=== PATIENT | female | born 1955 | race Caucasian/White ===

== ENCOUNTER 2016-11-04 09:30 | Outpatient (RCR) | payer SELFPAY ==
--- OUTSIDE RECORDS SUMMARY | 2016-10-07 08:52 | XMS REPORT | Continuity of Care Document ---
Author Author [facility] Organization [facility] Address Unknown Phone Unavailable Care Team Providers Care Clinical Reimbursement Specialist Name Role Phone HANK YOUNG MD PCP Insurance Providers Payer Name Policy Number Subscriber Name Relationship [facility] [id number] Dean Hyatt 18 Self / Same As Patient Advance Directives Directive Response Recorded Date/Time Advance Directives No 04/07/15 3:15pm Health Care Power of Development Geologist No 04/07/15 3:15pm Organ Donor No 04/07/15 3:15pm Resuscitation Status Full Code 04/07/15 3:15pm Chief Complaint and Reason for Visit Chief Complaint 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 HTN Reason for Visit Uncontrolled hypertension Problems Medical Problems Problem Onset Date Status Uncontrolled hypertension Unknown Active Medications Medication Dose Route Sig Days/Qty Instructions Order Date Discontinued Date Status Hum Insulin Nph/Reg Insulin Hm 80 Units SQ EVERY MORNING 04/24/13 Active Metformin HCl (Glucophage) 1,000 Each PO TWICE A DAY WITH MEALS 04/24 Active HCTZ/Lisinopril (Zestoretic) 1 Tab PO DAILY 04/24/13 Active Tramadol HCl 100 Mg PO THREE TIMES A DAY PRN PAIN TAKE 2 (50 MG) TABLETS 04/24/13 Active Cyclobenzaprine HCl 10 Mg PO THREE TIMES A DAY PRN MUSCLE SPASMS Active Acetaminophen/Hydrocodone Bitart 1 - 2 Ea PO Q4HR PRN 04/26/1304/07 Discontinued Insulin Human Regular SC 04/07/15 Active Hum Insulin Nph/Reg Insulin Hm 60 Units SQ EVERY EVENING 04/07/15 Active Trazodone Hcl 50 Mg PO BEDTIME 04/07/15 Active Clopidogrel Bisulfate 1 Each PO DAILY 30 Days 04/13/15 Active Aspirin 81 Mg PO DAILY 04/13/15 Active Social History Social History Problem Response Recorded Date/Time Alcohol Use Denies Use 04/07/2015 3:15pm Recreational Drug Use No 04/07/2015 3:15pm Recent Foreign Travel No 04/07/2015 3:15pm Recent Infectious Disease Exposure No 04/07/2015 3:15pm Hospitalization with Isolation Denies 04/13/2015 4:55pm Smoking Status Former Smoker 04/07/2015 3:15pm Do you dip or chew tobacco? No 04/07/2015 3:15pm Query Response Start Date Stop Date Smoking Status Former Smoker 04/07/1999 Hospital Discharge Instructions No hospital discharge instructions. Plan of Care Discharge Date 04/13/15 2:30pm Disposition 30 STILL A PATIENT Instructions/Education Provided Ischemic Stroke (DC) Forms Provided PDI Medical Prescriptions See Medications Section Referrals XOCHITL GUDINO MD (Unspecified) 04/20/15 Address: [address] [place] [phone] Reason(s) for Referral: 10:00am HANK YOUNG MD (Unspecified) 04/21/15 Address: [address] [place] [address], [facility] [address] [place] [phone] Reason(s) for Referral: 9:15am Functional Status Query Response Date Recorded Patient Orientation Person Place Time Situation April 13, 2015 10:39am Comprehension Ability Understands Concepts April 13, 2015 12:00pm Allergies, Adverse Reactions, Alerts Allergen Type Severity Reaction Status Last Updated No Known Drug Allergies Active 04/24/13 Immunizations Name Given Type Date of Pneumonia Vaccine 07/30/11 Historical Vital Signs Acute Vital Signs Vital Response Date/Time Temperature (Fahrenheit) 96.9 degrees F (97.6 - 99.5) Temperature (Calculated Celsius) 36.78518 degrees C (36.4 - 37.5) Temperature Source Tympanic Pulse Rate (adult) 74 bpm (60 - 90) Respiratory Rate 21 bpm (12 - 24) O2 Sat by Pulse Oximetry 98 % (88 - 100) Blood Pressure 152/90 mm Hg Pain Pain Intensity 0 Height (Feet) 5 feet Height (Inches) 3.00 inches Height (Calculated Centimeters) 160.124661 cm Weight (Pounds) 254 pounds Weight (Ounces) 8.0 oz Weight (Calculated Grams) 108044.463 gm Weight (Calculated Kilograms) 115.197128 kilograms Calculated BMI 46.05 Results Laboratory Results Test Name Result Units Flags Reference Collection Date/Time Result Date/ Time Comments White Blood Count 7.5 10^3/uL 4.3-11.0 04/13/2015 4:52am 04/13/2015 5: 31am Red Blood Count 3.63 10^6/uL L 4.35-5.85 04/13/2015 4:52am 04/13/2015 5: 31am Hemoglobin 10.4 G/DL L 11.5-16.0 04/13/2015 4:5204/13/2015 5:31am Hematocrit 33 % L 35-52 04/13/2015 4:52am 04/13/2015 5:31am Mean Corpuscular Volume 90 FL 80-99 04/13/2015 4:5204/13/2015 5: 31am Mean Corpuscular Hemoglobin 29 PG 25-34 04/13/2015 4:52am 04/13/2015 5: 31am Mean Corpuscular Hemoglobin Concent 32 G/DL 32-36 04/13/2015 4:52am 5:31am Red Cell Distribution Width 14.9 % H 10.0-14.5 04/13/2015 4:52am 2014 5:31am Platelet Count 220 10^3/uL 130-400 04/13/2015 4:5204/13/2015 5:31am Mean Platelet Volume 10.4 FL 7.4-10.4 04/13/2015 4:5204/13/2015 5: 31am Neutrophils (%) (Auto) 53 % 42-75 04/08/2015 5:0504/08/2015 5:37am Lymphocytes (%) (Auto) 38 % 12-44 04/08/2015 5:0504/08/2015 5:37am Monocytes (%) (Auto) 7 % 0-12 04/08/2015 5:0504/08/2015 5:37am Eosinophils (%) (Auto) 2 % 0-10 04/08/2015 5:05am 04/08/2015 5:37am Basophils (%) (Auto) 0 % 0-10 04/08/2015 5:05am 04/08/2015 5:37am Neutrophils # (Auto) 4.2 X 10^3 1.8-7.8 04/08/2015 5:05am 04/08/2015 5: 37am Lymphocytes # (Auto) 3.0 X 10^3 1.0-4.0 04/08/2015 5:05am 04/08/2015 5: 37am Monocytes # (Auto) 0.6 X 10^3 0.0-1.0 04/08/2015 5:05am 04/08/2015 5: 37am Eosinophils # (Auto) 0.2 10^3/uL 0.0-0.3 04/08/2015 5:05am 04/08/2015 5 :37am Basophils # (Auto) 0.0 10^3/uL 0.0-0.1 04/08/2015 5:05am 04/08/2015 5: 37am Prothrombin Time 12.7 SEC 12.2-14.7 04/10/2015 1:33am 04/10/2015 1: 57am INR Comment 1.0 0.8-1.4 04/10/2015 1:33am 04/10/2015 1:57am INTERPRETIVE DATA SUGGESTED THERAPEUTIC RANGE FOR INR'S: VENOUS THROMBOSIS, PULMONARY EMBOLISM, OR PREVENTION OF SYSTEMIC EMBOLISM (EG. IN ATRIAL FIBRILLATION): 2.0 - 3.0 MECHANICAL PROSTHETIC HEART VALVES: 2.5 - 3.5* *NOTE: INR'S UP TO 4.5 MAY BE NECESSARY IN SELECTED GROUPS OF HIGH RISK PATIENTS. [employer] CONSENSUS CONFERENCE ON ANTITHROMBOTIC THERAPY (2000). Activated Partial Thromboplast Time 76 SEC H 24-35 04/13/2015 5:59am 6:21am Urine Color YELLOW 04/07/2015 12:55pm 04/07/2015 1:20pm Urine Clarity CLEAR 04/07/2015 12:55pm 04/07/2015 1:20pm Urine pH 5 5-9 04/07/2015 12:55pm 04/07/2015 1:20pm Urine Specific [place] 1.020 1.016-1.022 04/07/2015 12:55pm 2014 1:20pm Urine Protein NEGATIVE NEGATIVE 04/07/2015 12:55pm 04/07/2015 1:20pm Urine Glucose (UA) NEGATIVE NEGATIVE 04/07/2015 12:55pm 04/07/2015 1: 20pm Urine RBC (Auto) NEGATIVE NEGATIVE 04/07/2015 12:55pm 04/07/2015 1: 20pm Urine Ketones NEGATIVE NEGATIVE 04/07/2015 12:55pm 04/07/2015 1:20pm Urine Nitrite NEGATIVE NEGATIVE 04/07/2015 12:55pm 04/07/2015 1:20pm Urine Bilirubin NEGATIVE NEGATIVE 04/07/2015 12:55pm 04/07/2015 1: 20pm Urine Urobilinogen NORMAL MG/DL NORMAL 04/07/2015 12:55pm 04/07/2015 1: 20pm Urine Leukocyte Esterase NEGATIVE NEGATIVE 04/07/2015 12:55pm 2014 1:20pm Urine RBC NONE /HPF 04/07/2015 12:55pm 04/07/2015 1:20pm Urine WBC NONE /HPF 04/07/2015 12:55pm 04/07/2015 1:20pm Urine Bacteria TRACE /HPF 04/07/2015 12:55pm 04/07/2015 1:20pm Urine Squamous Epithelial Cells 10-25 /HPF * 04/07/2015 12:55pm 2014 1:20pm Urine Crystals NONE /LPF 04/07/2015 12:55pm 04/07/2015 1:20pm Urine Casts NONE /LPF 04/07/2015 12:55pm 04/07/2015 1:20pm Urine Mucus NEGATIVE /LPF 04/07/2015 12:55pm 04/07/2015 1:20pm Urine Culture Indicated NO 04/07/2015 12:55pm 04/07/2015 1:20pm Sodium Level 137 MMOL/L 135-145 04/08/2015 5:05am 04/08/2015 5:51am Potassium Level 3.8 MMOL/L 3.6-5.0 04/08/2015 5:05am 04/08/2015 5:51am Chloride Level 106 MMOL/L 98-107 04/08/2015 5:05am 04/08/2015 5:51am Carbon Dioxide Level 19 MMOL/L L 21-32 04/08/2015 5:0504/08/2015 5: 51am Blood Urea Nitrogen 9 MG/DL 7-18 04/08/2015 5:04/08/2015 5:51am Creatinine 0.77 MG/DL 0.60-1.30 04/08/2015 5:0504/08/2015 5:51am BUN/Creatinine Ratio 12 04/08/2015 5:0504/08/2015 5:51am Estimat Glomerular Filtration Rate > 60 04/08/2015 5:2014 5:51am GFR INTERPRETIVE DATA UNITS FOR ESTIMATED GFR (eGFR): mL/min/1.73 M2 REFERENCE RANGE FOR ESTIMATED GFR (eGFR) eGFR NORMAL eGFR >60 MODERATELY DECREASED eGFR 30-59 SEVERLY DECREASED eGFR 15-29 KIDNEY FAILURE <15 (OR DIALYSIS) Glucose Level 119 MG/DL H 70-105 04/08/2015 5:04/08/2015 5:51am Glucometer 181 MG/DL H 70-110 04/13/2015 10:54am 04/13/2015 11:27am Calcium Level 8.8 MG/DL 8.5-10.1 04/08/2015 5:0504/08/2015 5:51am Magnesium Level 1.2 MG/DL L 1.8-2.4 04/08/2015 5:04/08/2015 5:51am Total Bilirubin 0.5 MG/DL 0.1-1.0 04/08/2015 5:04/08/2015 5:51am Alkaline Phosphatase 43 U/L 40-136 04/08/2015 5:04/08/2015 5:51am Aspartate Amino Transf (AST/SGOT) 40 U/L H 5-34 04/08/2015 5:2014 5:51am Alanine Aminotransferase (ALT/SGPT) 36 U/L 0-55 04/08/2015 5:04/08 5:51am Troponin I < 0.30 NG/ML <0.30 04/07/2015 12:25pm 04/07/2015 1:03pm Troponin I < 0.30 NG/ML <0.30 04/07/2015 8:30pm 04/07/2015 9:11pm Myoglobin 43.7 NG/ML 10.0-92.0 04/07/2015 12:25pm 04/07/2015 1:03pm Total Protein 6.9 G/DL 6.4-8.2 04/08/2015 5:05am 04/08/2015 5:51am Albumin 3.8 G/DL 3.2-4.5 04/08/2015 5:05am 04/08/2015 5:51am Triglycerides Level 170 MG/DL H <150 04/08/2015 5:05am 04/08/2015 12: 29pm Cholesterol Level 136 MG/DL < 200 04/08/2015 5:05am 04/08/2015 12:29pm HDL Cholesterol 32 MG/DL L 40-60 04/08/2015 5:05am 04/08/2015 12:29pm LDL Cholesterol Direct 84 MG/DL 1-129 04/08/2015 5:05am 04/08/2015 12: 29pm VLDL Cholesterol 34 MG/DL 5-40 04/08/2015 5:05am 04/08/2015 12:29pm Stool Occult Blood Immunoassay POSITIVE * NEGATIVE 04/12/2015 9:34am 12:11pm Procedures Procedure Status Date Provider(s) Tracing only of electrocardiogram completed 04/07/15 JUAN R MONTOYA DO Color Doppler echocardiography completed 04/07/15 HANK YOUNG MD Transesophageal echocardiography with contrast completed 04/09/15 HINA GUADALUPE DO Transesophageal echocardiography with contrast completed 04/09/15 HINA GUADALUPE DO Encounters Encounter Location Date/Time Discharged Inpatient [facility] 04/07/15 2:29pm Recent Diagnosis Uncontrolled hypertension
[~2016-11-04 09:30] MED LIST: ACET325T49 PO; APIX5TAB PO; ASP81CT PO; ATOR80TA76 PO; CLOP75TA PO; CLOP75TA69 PO; CYCL-97 PO; HUM100VI13 SQ; HUM100VI4 SQ; HYDR-3583 PO; INSA10V1 SC; LISI1TAB6 PO; LISI1TAB8 PO; METF-380 PO; TRAZ-144 PO; TRM50T PO
== END 2017-01-05 | disposition home or self-care (01) ==
LOC: CARD 09:30
PROVIDERS: ATTEND Internal Medicine Interventional Cardiology
DX: I48.91 Unspecified atrial fibrillation (principal)
CPT/HCPCS: 93270

== ENCOUNTER → 2019-11-29 | Outpatient (CLI) | payer MEDICARE ==
[~2019-11-29] MED LIST changes: +LISI1TAB25 PO; -LISI1TAB8 PO
--- NOTE | 2019-11-29 15:59 | Diagnostic Imaging Report ---
INDICATION: Routine screening. No prior mammograms are available for comparison. 2-D and 3-D bilateral screening mammography was performed. The current study was also evaluated with a Computer Aided Detection (CAD) system. 3-D tomosynthesis was also performed and reviewed. FINDINGS: Scattered fibroglandular densities are identified bilaterally. There are coarse benign calcifications throughout both breasts. A large calcified mass is seen in the medial aspect of the right breast. This could represent calcifications within a degenerative fibroadenoma. No spiculated mass or malignant-appearing microcalcifications are seen. Axillae are unremarkable. IMPRESSION: No mammographic features suspicious for malignancy are identified. ACR BI-RADS Category 2: Benign findings. Result letter will be mailed to the patient. Note: At least 10% of breast cancer is not imaged by mammography. Dictated by: Dictated on workstation # [id number]
== END ==
LOC: RAD 08:55
PROVIDERS: ATTEND Nurse Practitioner Community Health
DX: Z12.31 Encounter for screening mammogram for malignant neoplasm of breast (principal)
CPT/HCPCS: 77067

== ENCOUNTER 2021-12-27 20:31 | Observation (INO) | payer MEDICARE ==
[~2021-12-27] VITALS: Ht 160 cm; Wt 91.0 kg
[~2021-12-27 20:31] MED LIST changes: -LISI1TAB25 PO; +LISI1TAB46 PO
[2021-12-27] MEDS ORDERED: ASPIRIN 81 MG CHEW (CHILDREN'S ASA) PO ONE (20:45)
[2021-12-27 21:04] LABS: BASOPHILS % (AUTO) 0 % (0-10); EOSINOPHILS # (AUTO) 0.1 10^3/uL (0.0-0.3); EOSINOPHILS % (AUTO) 2 % (0-10); HEMATOCRIT 37 % (35-52); HEMOGLOBIN 11.8 g/dL (11.5-16.0); LYMPHOCYTES # (AUTO) 2.3 10^3/uL (1.0-4.0); LYMPHOCYTES % (AUTO) 41 % (12-44); MEAN CORPUSCULAR HEMOGLOBIN 30 pg (25-34); MEAN CORPUSCULAR HGB CONC 32 g/dL (32-36); MEAN CORPUSCULAR VOLUME 95 fL (80-99); MEAN PLATELET VOLUME 11.1 fL (9.0-12.2); MONOCYTES # (AUTO) 0.6 10^3/uL (0.0-1.0); MONOCYTES % (AUTO) 10 % (0-12); NEUTROPHILS # (AUTO) 2.5 10^3/uL (1.8-7.8); NEUTROPHILS % (AUTO) 46 % (42-75); PLATELET COUNT 284 10^3/uL (130-400); WHITE BLOOD COUNT 5.6 10^3/uL (4.3-11.0)
--- NOTE | 2021-12-27 21:05 | Diagnostic Imaging Report ---
CHEST 1 VIEW, AP/PA ONLY Indication: Chest pain. Comparison: 10/04/2016 Findings: No focal airspace disease in the visualized lungs. Please note that the posterior lower lobes are poorly evaluated by portable radiography. No pleural effusion or pneumothorax. Normal cardiomediastinal silhouette. Impression: 1. No acute cardiopulmonary process by portable radiography. Dictated by: Dictated on workstation # [id number]
--- NOTE | 2021-12-27 21:12 | ED Cardiac General ---
History of Present Illness General Chief Complaint: Cardiac/General Problems Source: patient Exam Limitations: no limitations History of Present Illness Date Seen by Provider: Dec 27, 2021 Time Seen by Provider: 21:08 Initial Comments To ER by EMS from [facility] with reports of an irregular pulse noticed this evening. She had some bradycardia with a palpable pulse in the 40s. Blood pressure is fine the patient voices no specific complaints though she states that she just generally does not feel quite right. She has been at the shelter for 2 weeks since being discharged from the [facility]. She denies chest pain. Family reports that she is not been eating or drinking since she has been at the shelter because she does not like their food and she refuses to drink the shakes. She has been without her insulin until today. 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 Hyperlipidemia Irregular heart beat Memory loss Morgan morgan disease Obesity Primary hypertension Type 2 diabetes mellitus with stage 3 chronic kidney disease, with long-term current use of insulin ([facility]) Brief Hospital Course Dean Hyatt is a 66 year old female, 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 Patient initially presented to [facility] after being found unresponsive by family. Last known well was 11/28/2021 at approximately 0800. Patient had witnessed seizure upon EMS arrival to scene and 3 additional witnessed seizures at OSH ER and subsequently intubated for airway protection. CT head w/o performed at OSH reported to be negative for acute intracranial abnormalities. Transferred to NEICU at [facility] for further evaluation and management of seizures, stabilized, transferred to Stroke service and then to General Neurology. MRI Brain showed new R FRUIT CULLER infarct. 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 Seizures were quickly controlled. 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 Patient was continued on Aspirin and started on Ticagrelor (failed Clopidogrel in the past) as dual-antiplatelet therapy for 3 months, placed on 80 Atorvastatin and ezetimibe, and started on Keppra after weaning off Lacosamide, but eventually Lacosamide was weaned off and she has been seizure free on Keppra monotherapy 1500 BID. She was a historical smoker, but not active. Cardiology was consulted due to runs of PVCs and started Metoprolol for rate control and recommended further outpatient workup. Her magnesium was low which was a cardiac rhythm risk so she was started on oral magnesium supplementation. Her diabetes was optimized by Endocrine inpatient and she was normalized on Glargine, Aspart, and Metformin. She developed a mild SU due to poor PO intake but did not tolerate keeping an IV in place so this was managed with strong encouragement of PO intake. Her blood pressures were kept within goal on Lisinopril, she received regular PT and OT, and was assessed by Rehab who recommended subacute rehabili tation. She was discharged with Holter monitor orders for 30 days. Timing/Duration: constant Severity: mild, moderate Activities at Onset: none Prior CP/Workup: no prior chest pain NTG SL MANAGER BANK: No ASA po MANAGER BANK: No Allergies and Home Medications Allergies Coded Allergies: No Known Drug Allergies (Unverified , 04/24/13) Patient Home Medication List Home Medication List Reviewed: Yes Acetaminophen (Acetaminophen) 325 Mg Tablet, 650 MG PO Q6H PRN for PAIN, (Reported) Entered as Reported by: JUAN FRANCISCO GONZALEZ on 10/02/16 1713 Apixaban (Eliquis) 5 Mg Tablet, 5 MG PO BID Prescribed by: DANIEL KRISHNA on 10/04/16 1249 Atorvastatin Calcium (Atorvastatin Calcium) 80 Mg Tablet, 80 MG PO DAILY, (Reported) Entered as Reported by: JUAN FRANCISCO GONZALEZ on 10/02/16 1714 Cyclobenzaprine Hcl (Flexeril) 10 Mg Tablet, 10 MG PO HS PRN for MUSCLE SPASMS, (Reported) Entered as Reported by: ANDREAS CHINCHILLA on 04/24/13 1003 Hum Insulin Nph/Reg Insulin Hm (Relion Novolin 70-30 Vial) 10 Ml Vial, 20-30 UNITS SQ BID, (Reported) Entered as Reported by: ANDREAS CHINCHILLA on 04/24/13 1003 Insulin Human Regular (Novolin R (Sliding Scale-A)) 10 Unit/0.1 Ml Soln, SC UD, (Reported) Entered as Reported by: YUNIOR BENITEZ on 04/07/15 1508 Lisinopril/Hydrochlorothiazide (Lisinopril-Hctz 20-12.5 mg Tab) 1 Each Tablet, 1 TAB PO DAILY, (Reported) Entered as Reported by: JUAN FRANCISCO GONZALEZ on 10/02/16 1710 Metformin Hcl (Metformin 1000 Mg) 1,000 Mg Tablet, 1,000 MG PO BID WITH MEALS, (Reported) Entered as Reported by: ANDREAS CHINCHILLA on 04/24/13 1003 Tramadol Hcl (Ultram) 50 Mg Tab, 100 MG PO Q8H PRN for PAIN, (Reported) Entered as Reported by: ANDREAS CHINCHILLA on 04/24/13 1003 Trazodone Hcl (Trazodone Hcl) 50 Mg Tablet, 50 MG PO HS, (Reported) Entered as Reported by: YUNIOR BENITEZ on 04/07/15 1509 Review of Systems Review of Systems Constitutional: see HPI, weakness EENTM: No Symptoms Reported Respiratory: No Symptoms Reported Cardiovascular: No Symptoms Reported Gastrointestinal: See HPI Genitourinary: No Symptoms Reported Musculoskeletal: no symptoms reported Psychiatric/Neurological: No Symptoms Reported Endocrine: No Symptoms Reported Hematologic/Lymphatic: No Symptoms Reported Past Occjpgx-Teriob-Zdtpjv Hx Immunizations Up To Date Tetanus Booster (TDap): Unknown PED Vaccines UTD: No Seasonal Allergies Seasonal Allergies: No Past Medical History Breast, Hysterectomy, Neurological, Orthopedic High Cholesterol, Hypertension Stroke Reproductive Disorders: No Female Reproductive Disorders: Denies IRON INSTALLER History: Hysterectomy Sexually Transmitted Disease: No HIV/AIDS: No Gastroesophageal Reflux Chronic Back Pain Diabetes, Insulin dep Loss of Vision: Denies Hearing Impairment: Denies Adverse Reaction/Blood Tranf: No Family Medical History Hypertension Physical Exam Vital Signs Vital Signs - First Documented 12/27/21 20:35 Temp 36.1 Pulse 53 Resp 15 B/P (MAP) 143/73 (96) Pulse Ox 100 Capillary Refill : Height, Weight, BMI Height: 5'3.00" Weight: 231lbs. 0.0oz. 104.145036sk; 41.1 BMI Method:Stated General Appearance: No Apparent Distress, WD/WN, Chronically ill Neck: Full Range of Motion, Normal Inspection Respiratory: No Accessory Muscle Use, No Respiratory Distress Cardiovascular: Regular Rate, Rhythm, Normal Peripheral Pulses, Other (EKG shows sinus rhythm at [address] segment changes no ectopy. Telemetry monitoring does show some ectopy in the form of fairly frequent PVCs every 3rd-5th beat. She is on metoprolol tartrate 25 mg twice daily.) Gastrointestinal: Non Tender, Soft Neurologic/Psychiatric: Alert, Oriented x3 Skin: Normal Color, Warm/Dry Progress/Results/Core Measures Results/Orders Lab Results Laboratory Tests Test 12/27/21 20:54 Range/Units White Blood Count 5.6 4.3-11.0 10^3/uL Red Blood Count 3.89 3.80-5.11 10^6/uL Hemoglobin 11.8 11.5-16.0 g/dL Hematocrit 37 35-52 % Mean Corpuscular Volume 95 80-99 fL Mean Corpuscular Hemoglobin 30 25-34 pg Mean Corpuscular Hemoglobin Concent 32 32-36 g/dL Red Cell Distribution Width 15.0 H 10.0-14.5 % Platelet Count 284 130-400 10^3/uL Mean Platelet Volume 11.1 9.0-12.2 fL Immature Granulocyte % (Auto) 0 % Neutrophils (%) (Auto) 46 42-75 % Lymphocytes (%) (Auto) 41 12-44 % Monocytes (%) (Auto) 10 0-12 % Eosinophils (%) (Auto) 2 0-10 % Basophils (%) (Auto) 0 0-10 % Neutrophils # (Auto) 2.5 1.8-7.8 10^3/uL Lymphocytes # (Auto) 2.3 1.0-4.0 10^3/uL Monocytes # (Auto) 0.6 0.0-1.0 10^3/uL Eosinophils # (Auto) 0.1 0.0-0.3 10^3/uL Basophils # (Auto) 0.0 0.0-0.1 10^3/uL Immature Granulocyte # (Auto) 0.0 0.0-0.1 10^3/uL Prothrombin Time 13.6 12.2-14.7 SEC INR Comment 1.0 0.8-1.4 Activated Partial Thromboplast Time 27 24-35 SEC Sodium Level 137 135-145 MMOL/L Potassium Level 4.8 3.6-5.0 MMOL/L Chloride Level 105 98-107 MMOL/L Carbon Dioxide Level 17 L 21-32 MMOL/L Anion Gap 15 H 5-14 MMOL/L Blood Urea Nitrogen 44 H 7-18 MG/DL Creatinine 2.24 H 0.60-1.30 MG/DL Estimat Glomerular Filtration Rate 24 BUN/Creatinine Ratio 20 Glucose Level 181 H 70-105 MG/DL Calcium Level 9.5 8.5-10.1 MG/DL Corrected Calcium 9.4 8.5-10.1 MG/DL Magnesium Level 1.6 1.6-2.4 MG/DL Total Bilirubin 0.4 0.1-1.0 MG/DL Aspartate Amino Transf (AST/SGOT) 20 5-34 U/L Alanine Aminotransferase (ALT/SGPT) 20 0-55 U/L Alkaline Phosphatase 57 40-136 U/L Myoglobin 83.4 10.0-92.0 NG/ML Troponin I < 0.028 <0.028 NG/ML B-Type Natriuretic Peptide 75.5 <100.0 PG/ML Total Protein 7.0 6.4-8.2 GM/DL Albumin 4.1 3.2-4.5 GM/DL My Orders Orders - MAURA HENAO [employer] Cbc With Automated Diff (12/27/21 20:45) Magnesium (12/27/21 20:45) Chest 1 View, Ap/Pa Only (12/27/21 20:45) Ekg Tracing (12/27/21 20:45) Comprehensive Metabolic Panel (12/27/21 20:45) Myoglobin Serum (12/27/21 20:45) Protime With Inr (12/27/21 20:45) Partial Thromboplastin Time (12/27/21 20:45) O2 (12/27/21 20:45) Monitor-Rhythm Ecg Trace Only (12/27/21 20:45) Lipid Panel (12/28/21 06:00) Ed Iv/Invasive Line Start (12/27/21 20:45) Bnp [place] (12/27/21 20:45) Troponin I Denise (12/27/21 20:45) Aspirin Chewable Tablet (Baby Aspirin Ch (12/27/21 20:45) Lactated Ringers (Lr 1000 Ml Iv Solution (12/27/21 21:15) Ua Culture If Indicated (12/27/21 21:08) Straight Cath (Urinary) (12/27/21 21:08) Medications Given in ED Current Medications Medications Dose Ordered Sig/Payton Route Start Time Stop Time Status Last Admin Dose Admin Aspirin 324 mg ONCE ONCE PO 12/27/21 20:45 12/27/21 20:46 DC 12/27/21 21:17 324 MG Vital Signs/I&O 12/27/21 20:35 Temp 36.1 Pulse 53 Resp 15 B/P (MAP) 143/73 (96) Pulse Ox 100 Diagnostic Imaging Diagonstic Imaging: Xray Plain Films/CT/US/NM/MRI: chest Comments NAME: DEAN HYATT [facility] REC#: [id number] PT STATUS: REG ER : 1955 PHYSICIAN: MAURA HENAO APRN ADMIT DATE: 12/27/21/ER Signed Date of Exam:12/27/21 CHEST 1 VIEW, AP/PA ONLY CHEST 1 VIEW, AP/PA ONLY Indication: Chest pain. Comparison: 10/04/2016 Findings: No focal airspace disease in the visualized lungs. Please note that the posterior lower lobes are poorly evaluated by portable radiography. No pleural effusion or pneumothorax. Normal cardiomediastinal silhouette. Impression: 1. No acute cardiopulmonary process by portable radiography. Dictated by: Dictated on workstation # [id number] Dict: 12/27/212102 Trans: 12/27/212102 [facility] [id number] Interpreted by: BRENDEN CLAROS MD Electronically signed by: BRENDEN CLAROS MD 12/27/212102 Departure Communication (Admissions) 2201-heart rate of 58 with still frequent PVC, one unifocal PVC every 3rd-6th beat or so. Blood pressure 121/44. Denies chest pain. Sitting up in bed talking. States she wants to be moved to another room. Mentating well. She does have frequent PVCs and I will consult cardiology in the morning for that. Will admit overnight for IV hydration to Dr. Caceres. Impression Primary Impression: SU (acute kidney injury) Additional Impression: Bradycardia Disposition: ADMITTED INPATIENT Condition: Stable Admissions Decision to Admit Reason: Admit from ER (General) Decision to Admit/Date: Dec 27, 2021 Time/Decision to Admit Time: 22:59 Departure-Patient Inst. Referrals: NO,LOCAL PHYSICIAN (PCP) Primary Care Physician REN REILLY (Family) Primary Care Physician MAURA HENAO APRN Dec 27, 2021 21:11
[2021-12-27] MEDS ORDERED: LACTATED RINGERS 1,000 ML IV SCH (21:15)
[2021-12-27 21:19] LABS: PROTHROMBIN TIME PATIENT 13.6 SEC (12.2-14.7)
[2021-12-27 21:35] LABS: ALBUMIN 4.1 GM/DL (3.2-4.5); BILIRUBIN,TOTAL 0.4 MG/DL (0.1-1.0); CALCIUM 9.5 MG/DL (8.5-10.1); CREATININE SERUM 2.24 MG/DL (0.60-1.30); MAGNESIUM 1.6 MG/DL (1.6-2.4); POTASSIUM 4.8 MMOL/L (3.6-5.0)
[2021-12-27 22:25] LABS: CLARITY,URINE CLEAR; COLOR,URINE YELLOW; GLUCOSE, URINE (UA) NEGATIVE (NEGATIVE); KETONES,URINE NEGATIVE (NEGATIVE); LEUKOCYTE ESTERASE ,URINE NEGATIVE (NEGATIVE); NITRITE,URINE NEGATIVE (NEGATIVE); PH,URINE 5.5 (5-9); PROTEIN,URINE NEGATIVE (NEGATIVE)
[2021-12-27 22:52] LABS: BILIRUBIN,URINE 1+ (NEGATIVE)
[2021-12-27 22:53] LABS: BACTERIA,URINE MODERATE /HPF; SQUAMOUS EPITHELIAL CELL,UR 0-2 /HPF; WBC,URINE RARE /HPF
[2021-12-27 23:10] VITALS: BP 151/56
[2021-12-28] MEDS: LACTATED RINGERS 1,000 ML IV SCH ×2 (00:38→11:07)
[2021-12-28 04:06] VITALS: BP 133/55
[2021-12-28 06:26] LABS: BASOPHILS % (AUTO) 1 % (0-10); EOSINOPHILS # (AUTO) 0.2 10^3/uL (0.0-0.3); EOSINOPHILS % (AUTO) 3 % (0-10); HEMATOCRIT 33 % (35-52); HEMOGLOBIN 10.5 g/dL (11.5-16.0); LYMPHOCYTES # (AUTO) 2.9 10^3/uL (1.0-4.0); LYMPHOCYTES % (AUTO) 53 % (12-44); MEAN CORPUSCULAR HEMOGLOBIN 30 pg (25-34); MEAN CORPUSCULAR HGB CONC 32 g/dL (32-36); MEAN CORPUSCULAR VOLUME 95 fL (80-99); MONOCYTES # (AUTO) 0.4 10^3/uL (0.0-1.0); MONOCYTES % (AUTO) 8 % (0-12); NEUTROPHILS % (AUTO) 36 % (42-75); PLATELET COUNT 243 10^3/uL (130-400); WHITE BLOOD COUNT 5.5 10^3/uL (4.3-11.0)
[2021-12-28 06:39] LABS: POTASSIUM 4.3 MMOL/L (3.6-5.0)
[2021-12-28 06:40] LABS: CALCIUM 9.3 MG/DL (8.5-10.1)
[2021-12-28 06:45] LABS: CREATININE SERUM 1.59 MG/DL (0.60-1.30)
[2021-12-28 08:48] VITALS: BP 118/53
--- NOTE | 2021-12-28 09:37 | History & Physical ---
HPI History of Present Illness: Pt has difficulty expressing why she came to the hospital, starts sentences and is unable to complete, she says she came "it was just... it was just... it was just..." and when trying to clarify, was it because of not feeling well, she said no. She says she feels okay. She denies noticing any palpitations. When asked about surgical history, she says she had surgery for Morgan Morgan, but when asked what was done, she said "They did... no". She notes she has vision loss from complication of Morgan Morgan. She is able to say that she had recent hospital stay due to Morgan Morgan. She can't recall when that was. When asked about her intake and report of not eating and drinking well, she says she has been eating okay. Medical history is per clinic chart review, she states she has only Morgan Mrogan and HTN. Chart review indicates she began having intractable seizures in Sep 2021, she also had CKD with GFR in the 45-60 range since summer 2019. Source: patient Exam Limitations: clinical condition Date seen by provider: Dec 28, 2021 Time Seen by Provider: 09:33 Attending Physician Laz Caceres MD [facility] [place] [place] Consult Date of Admission Dec 27, 2021 at 22:11 Home Medications Home Medications Reviewed patient Home Medication Reconciliation performed by pharmacy medication reconciliations downstream biomanufacturing technician and/or nursing. Patients Allergies have been reviewed. Allergies Coded Allergies: No Known Drug Allergies (Unverified , 04/24/13) BDS-Nuqdvi-Llgspk Hx Patient Social History Smoking Status: Former Smoker Former smoker/When Quit: Apr 07, 1999 2nd Hand Smoke Exposure: No Recent Hopitalizations: No Alcohol Use?: No Have you traveled recently?: No Immunizations Up To Date Tetanus Booster (TDap): Unknown Influenza Vaccine Up-to-Date: Yes; Up-to-Date First/Initial COVID19 Vaccinat: May 13, 2021 Second COVID19 Vaccination James: Jun 03, 2021 COVID19 Vaccine Core Inspector: Brent Past Medical History PMHx: Morgan Morgan HTN HLD DMII CKD CVA Blind Seizure disorder SurgHx: Breast reduction Cholecystectomy Intracranial bypass Hysterectomy C-spine fracture repair Family Medical History Significant Family History: Hypertension Review of Systems (CHC) Constitutional: No fever Respiratory: No short of breath Cardiovascular: No chest pain, No palpitations Gastrointestinal: No abdominal pain, No constipation, No diarrhea, No nausea, No vomiting Genitourinary: No dysuria Musculoskeletal: No muscle pain Reviewed Test Results Reviewed Test Results Lab Laboratory Tests Test 12/27/21 20:54 12/27/21 22:14 12/28/21 06:18 Range/Units White Blood Count 5.6 5.5 4.3-11.0 10^3/uL Red Blood Count 3.89 3.47 L 3.80-5.11 10^6/uL Hemoglobin 11.8 10.5 L 11.5-16.0 g/dL Hematocrit 37 33 L 35-52 % Mean Corpuscular Volume 95 95 80-99 fL Mean Corpuscular Hemoglobin 30 30 25-34 pg Mean Corpuscular Hemoglobin Concent 32 32 32-36 g/dL Red Cell Distribution Width 15.0 H 14.9 H 10.0-14.5 % Platelet Count 284 243 130-400 10^3/uL Mean Platelet Volume 11.1 11.0 9.0-12.2 fL Immature Granulocyte % (Auto) 0 0 % Neutrophils (%) (Auto) 46 36 L 42-75 % Lymphocytes (%) (Auto) 41 53 H 12-44 % Monocytes (%) (Auto) 10 8 0-12 % Eosinophils (%) (Auto) 2 3 0-10 % Basophils (%) (Auto) 0 1 0-10 % Neutrophils # (Auto) 2.5 2.0 1.8-7.8 10^3/uL Lymphocytes # (Auto) 2.3 2.9 1.0-4.0 10^3/uL Monocytes # (Auto) 0.6 0.4 0.0-1.0 10^3/uL Eosinophils # (Auto) 0.1 0.2 0.0-0.3 10^3/uL Basophils # (Auto) 0.0 0.0 0.0-0.1 10^3/uL Immature Granulocyte # (Auto) 0.0 0.0 0.0-0.1 10^3/uL Prothrombin Time 13.6 12.2-14.7 SEC INR Comment 1.0 0.8-1.4 Activated Partial Thromboplast Time 27 24-35 SEC Sodium Level 137 137 135-145 MMOL/L Potassium Level 4.8 4.3 3.6-5.0 MMOL/L Chloride Level 105 109 H 98-107 MMOL/L Carbon Dioxide Level 17 L 17 L 21-32 MMOL/L Anion Gap 15 H 11 5-14 MMOL/L Blood Urea Nitrogen 44 H 39 H 7-18 MG/DL Creatinine 2.24 H 1.59 H 0.60-1.30 MG/DL Estimat Glomerular Filtration Rate 24 36 BUN/Creatinine Ratio 20 25 Glucose Level 181 H 132 H 70-105 MG/DL Calcium Level 9.5 9.3 8.5-10.1 MG/DL Corrected Calcium 9.4 8.5-10.1 MG/DL Magnesium Level 1.6 1.6-2.4 MG/DL Total Bilirubin 0.4 0.1-1.0 MG/DL Aspartate Amino Transf (AST/SGOT) 20 5-34 U/L Alanine Aminotransferase (ALT/SGPT) 20 0-55 U/L Alkaline Phosphatase 57 40-136 U/L Myoglobin 83.4 10.0-92.0 NG/ML Troponin I < 0.028 <0.028 NG/ML B-Type Natriuretic Peptide 75.5 <100.0 PG/ML Total Protein 7.0 6.4-8.2 GM/DL Albumin 4.1 3.2-4.5 GM/DL Urine Color YELLOW Urine Clarity CLEAR Urine pH 5.5 5-9 Urine Specific [place] >=1.030 1.016-1.022 Urine Protein NEGATIVE NEGATIVE Urine Glucose (UA) NEGATIVE NEGATIVE Urine Ketones NEGATIVE NEGATIVE Urine Nitrite NEGATIVE NEGATIVE Urine Bilirubin 1+ H NEGATIVE Urine Urobilinogen 0.2 < = 1.0 MG/DL Urine Leukocyte Esterase NEGATIVE NEGATIVE Urine RBC (Auto) NEGATIVE NEGATIVE Urine RBC NONE /HPF Urine WBC RARE /HPF Urine Squamous Epithelial Cells 0-2 /HPF Urine Crystals NONE /LPF Urine Bacteria MODERATE H /HPF Urine Casts NONE /LPF Urine Mucus NEGATIVE /LPF Urine Culture Indicated YES Triglycerides Level 221 H <150 MG/DL Cholesterol Level 108 < 200 MG/DL LDL Cholesterol Direct 46 1-129 MG/DL VLDL Cholesterol 44 H 5-40 MG/DL HDL Cholesterol 28 L 40-60 MG/DL Radiology CXR 12/27: Impression: 1. No acute cardiopulmonary process by portable radiography. Physical Exam-(CHC) Physical Exam Vital Signs VS - Last 72 Hours, by Label 12/27/21 12/27/21 12/27/21 12/28/21 20:35 23:10 23:20 00:24 Temp 36.1 36.1 Pulse 53 33 74 Resp 15 20 B/P (MAP) 143/73 (96) 151/56 (87) Pulse Ox 100 99 O2 Delivery Room Air Room Air 12/28/21 12/28/21 12/28/21 12/28/21 01:00 04:06 08:00 08:00 Temp 36.3 Pulse 66 39 69 Resp 18 B/P (MAP) 133/55 (81) Pulse Ox 96 O2 Delivery Room Air Room Air 12/28/21 08:48 Temp 36.1 Pulse 33 Resp 18 B/P (MAP) 118/53 (74) Pulse Ox 99 O2 Delivery Room Air Capillary Refill : General Appearance: WD/WN, no apparent distress Respiratory: lungs clear, normal breath sounds Cardiovascular: bradycardia (irregular at times) Gastrointestinal: normal bowel sounds, non tender, soft Extremities: no pedal edema Neurologic/Psychiatric: alert; No motor weakness (5/5 strength in shoulder abduction, postal delivery officer, hip flexion and ankle dorsiflexion/plantarflexion); other (CN intact except for vision, able to move eyes in all directions, but not to follow object, speech slow at times and sometimes unable to find words, oriented to self, able to say she is in the hospital and that is is [facility], but unable to name location and said "come on help me out", does not know date) Skin: normal color, warm/dry Assessment/Plan Assessment/Plan Admission Status: Observation (1) Bradycardia Status: Acute Assessment & Plan: Recently initiated on beta beto for frequent ectopy at hospitalization. Appreciate Cardiology recommendations. (2) SU (acute kidney injury) Status: Acute Assessment & Plan: Suspect secondary to poor intake, although she does deny. Improved with IVF overnight, continue fluid replacement. Baseline creatinine per clinic chart is around 1.1. (3) Diabetes mellitus Status: Acute Assessment & Plan: Hold home metformin due to acute kidney injury. Diabetic diet, sliding scale insulin. Qualifiers: Qualified Codes: E11.22 - Type 2 diabetes mellitus with diabetic chronic kidney disease; N18.31 - Chronic kidney disease, stage 3a (4) Seizure disorder as sequela of cerebrovascular accident Status: Chronic Assessment & Plan: Resume home Keppra. (5) Hyperlipidemia Status: Chronic Assessment & Plan: Resume home statin. (6) Hypertension Status: Chronic Assessment & Plan: Hold lisinopril due to acute kidney injury Qualifiers: Qualified Codes: I10 - Essential (primary) hypertension (7) History of CVA (cerebrovascular accident) Status: Chronic Assessment & Plan: On aspirin and ticagrelor due to recent CVA, failed clopidogrel in past. 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
[2021-12-28] MEDS ORDERED: ESCI5TAB PO (09:59)
[2021-12-28] MEDS ORDERED: ATOR80TA76 PO (09:59)
[2021-12-28] MEDS ORDERED: METO-333 PO (09:59)
[2021-12-28] MEDS ORDERED: METF-399 PO (09:59)
[2021-12-28] MEDS ORDERED: MELA5TAB14 PO (09:59)
[2021-12-28] MEDS ORDERED: MAGN400T39 PO (09:59)
[2021-12-28] MEDS ORDERED: TICA90TA PO (09:59)
[2021-12-28] MEDS ORDERED: ACET-2267 PO (09:59)
[2021-12-28] MEDS ORDERED: ASPI-1238 PO (09:59)
[2021-12-28] MEDS ORDERED: SENN-234 PO (09:59)
[2021-12-28] MEDS ORDERED: LISI10TA25 PO (09:59)
[2021-12-28] MEDS ORDERED: EZET10TA17 PO (09:59)
[2021-12-28] MEDS ORDERED: CALC500T7 PO (09:59)
[2021-12-28] MEDS ORDERED: LEVE750T19 PO (09:59)
--- NOTE | 2021-12-28 10:55 | Consultation-Cardiology ---
HPI-Cardiology Cardiology Consultation: Date of Consultation 12/28/21 Time Seen by a Provider: 10:30 Date of Admission 12-27-21 Attending Physician Sarah Caceres MD Admitting Physician [facility] Consulting Physician RENEE GARCIA HPI: Chief Complaint: PVC Ms. Hyatt is a 66 yr old female who has been admitted to [facility] from the ED. She is unable to recall the events leading up to her admission to the hospital. She has difficulty finding words at times. She does not report any c/o CP, SOB, syncope or near syncope. She reports she has a feeling of palpitations, describing it as a feeling of skipped beats. She denies any nv/d. She reports she has not been eating well d/t food at the facility where is is currently residing not tasting good. She reports d/t [place] dz has visual impairment. She has been following with [facility] neurology. Review of Systems-Cardiology Review of Systems Constitutional: No chills, No fever, No malaise Eyes: As described under HPI Ears/Nose/Throat: No epistaxis, No recent hearing loss Respiratory: As described under HPI Cardiovascular: As described under HPI Gastrointestinal: As described under HPI Genitourinary: No dysuria Musculoskeletal: no symptoms reported Skin: no symptoms reported Psychiatric/Neurological: anxiety; No focal weakness, No syncope Hematologic: No bleeding abnormalities JLL-Kfrvmv-Gasvxb Hx Patient Social History Smoking Status: Former Smoker Former smoker/When Quit: Apr 07, 1999 2nd Hand Smoke Exposure: No Have you traveled recently?: No Alcohol Use?: No Pt feels they are or have been: No Immunizations Up To Date Tetanus Booster (TDap): Unknown Date of Pneumonia Vaccine: Jul 03, 2016 Date of Influenza Vaccine: Jul 03, 2016 Past Medical History PMH As described under Assessment. Family Medical History Family Medical History: She reports he father had CAD. She reports he mother had CVA's. Allergies and Home Medications Allergies Coded Allergies: No Known Drug Allergies (Unverified , 04/24/13) Patient Home Medication List Home Medication List Reviewed: Yes Acetaminophen (Tylenol Extra Strength) 500 Mg Tablet, 1,000 MG PO Q6H PRN for PAIN-MILD (1-4), (Reported) Entered as Reported by: AMELIE ANDREW on 3/11/20 958 Last Action: Reviewed Aspirin (Aspirin EC) 81 Mg Tablet.dr, 81 MG PO DAILY, (Reported) Entered as Reported by: AMELIE ANDREW on 12/28/21958 Last Action: Reviewed Atorvastatin Calcium (Atorvastatin Calcium) 80 Mg Tablet, 80 MG PO 1800, (Reported) Entered as Reported by: AMELIE ANDREW on 12/28/21958 Last Action: Reviewed Calcium Carbonate (Tums) 200 Mg Tab.chew, 500 MG PO Q12H PRN for INDIGESTION, (Reported) Entered as Reported by: AMELIE ANDREW on 12/28/21958 Last Action: Reviewed Escitalopram Oxalate (Lexapro) 5 Mg Tablet, 5 MG PO 1800, (Reported) Entered as Reported by: AMELIE ANDREW on 12/28/21958 Last Action: Reviewed Ezetimibe (Zetia) 10 Mg Tablet, 10 MG PO DAILY, (Reported) Entered as Reported by: AMELIE ANDREW on 12/28/21958 Last Action: Reviewed Levetiracetam (Keppra) 750 Mg Tablet, 1,500 MG PO 0600,1800, (Reported) Entered as Reported by: AMELIE ANDREW on 12/28/21958 Last Action: Reviewed Lisinopril (Lisinopril) 10 Mg Tablet, 10 MG PO DAILY, (Reported) Entered as Reported by: AMELIE ANDREW on 12/28/21958 Last Action: Reviewed Magnesium Oxide (Magnesium) 400 Mg Tablet, 400 MG PO DAILY, (Reported) Entered as Reported by: AMELIE ANDREW on 12/28/21958 Last Action: Reviewed Melatonin (Melatonin) 5 Mg Tablet, 10 MG PO 1800, (Reported) Entered as Reported by: AMELIE ANDREW on 12/28/21958 Last Action: Reviewed Metformin HCl (Metformin HCl) 1,000 Mg Tablet, 1,000 MG PO 0600,1800, (Reported) Entered as Reported by: AMELIE ANDREW on 12/28/21958 Last Action: Reviewed Metoprolol Tartrate (Metoprolol Tartrate) 25 Mg Tablet, 25 MG PO 0600,1800, (Reported) Entered as Reported by: AMELIE ANDREW on 12/28/21958 Last Action: Reviewed Sennosides (Senna) 8.6 Mg Tablet, 8.6 MG PO Q12H PRN for CONSTIPATION-4TH LINE, (Reported) Entered as Reported by: AMELIE ANDREW on 12/28/2159 Last Action: Reviewed Ticagrelor (Brilinta) 90 Mg Tablet, 90 MG PO 0600,1800, (Reported) Entered as Reported by: AMELIE ANDREW on 12/28/2159 Last Action: Reviewed Discontinued Medications Acetaminophen (Acetaminophen) 325 Mg Tablet, 650 MG PO Q6H PRN for PAIN, (Reported) Discontinued Reason: No Longer Taking Entered as Reported by: JUAN FRANCISCO GONZALEZ on 10/02/161712 Last Action: Discontinued Apixaban (Eliquis) 5 Mg Tablet, 5 MG PO BID Discontinued Reason: No Longer Taking Prescribed by: DANIEL KRISHNA on 10/04/16 1249 Last Action: Discontinued Atorvastatin Calcium (Atorvastatin Calcium) 80 Mg Tablet, 80 MG PO DAILY, (Reported) Discontinued Reason: No Longer Taking Entered as Reported by: JUAN FRANCISCO GONZALEZ on 10/02/16 171 Last Action: Discontinued Cyclobenzaprine Hcl (Flexeril) 10 Mg Tablet, 10 MG PO HS PRN for MUSCLE SPASMS, (Reported) Discontinued Reason: No Longer Taking Entered as Reported by: ANDREAS CHINCHILLA on 04/24/13 1003 Last Action: Discontinued Hum Insulin Nph/Reg Insulin Hm (Relion Novolin 70-30 Vial) 10 Ml Vial, 20-30 UNITS SQ BID, (Reported) Discontinued Reason: No Longer Taking Entered as Reported by: ANDREAS CHINCHILLA on 04/24/13 1003 Last Action: Discontinued Insulin Human Regular (Novolin R (Sliding Scale-A)) 10 Unit/0.1 Ml Soln, SC UD, (Reported) Discontinued Reason: No Longer Taking Entered as Reported by: YUNIOR BENITEZ on 04/07/15 1508 Last Action: Discontinued Lisinopril/Hydrochlorothiazide (Lisinopril-Hctz 20-12.5 mg Tab) 1 Each Tablet, 1 TAB PO DAILY, (Reported) Discontinued Reason: No Longer Taking Entered as Reported by: JUAN FRANCISCO GONZALEZ on 10/02/16 1710 Last Action: Discontinued Metformin Hcl (Metformin 1000 Mg) 1,000 Mg Tablet, 1,000 MG PO BID WITH MEALS, (Reported) Discontinued Reason: No Longer Taking Entered as Reported by: ANDREAS CHINCHILLA on 04/24/13 1003 Last Action: Discontinued Tramadol Hcl (Ultram) 50 Mg Tab, 100 MG PO Q8H PRN for PAIN, (Reported) Discontinued Reason: No Longer Taking Entered as Reported by: ANDREAS CHINCHILLA on 04/24/13 1003 Last Action: Discontinued Trazodone Hcl (Trazodone Hcl) 50 Mg Tablet, 50 MG PO HS, (Reported) Discontinued Reason: No Longer Taking Entered as Reported by: YUNIOR BENITEZ on 04/07/15 1509 Last Action: Discontinued Physical Exam-Cardiology Physical Exam Vital Signs/I&O 12/27/21 12/28/21 12/28/21 12/28/21 23:20 00:24 01:00 04:06 Temp 36.3 Pulse 74 66 39 Resp 18 B/P (MAP) 133/55 (81) Pulse Ox 96 O2 Delivery Room Air Room Air 12/28/21 12/28/21 12/28/21 08:00 08:00 08:48 Temp 36.1 Pulse 69 33 Resp 18 B/P (MAP) 118/53 (74) Pulse Ox 99 O2 Delivery Room Air Room Air 12/28/21 00:00 Intake Total 1000 ml Balance 1000 ml Capillary Refill : Constitutional: well-developed, well-nourished, other (AAO - speech during conversation is broken with word search at times) HEENT: hearing is well preserved, oral hygience is good Neck: No carotid bruit; carotid pulses are 2 + bilaterally Respiratory: No accessory muscle use, No respiratory distress; chest expansion is symmetric, chest is bilaterally symmetric, lungs clear to auscultation Cardiovascular: irregularly irregular; No JVD; S1 and S2 Gastrointestinal: No tender; soft, round, audible bowel sounds Extremities: no lower extremity edema bilateral Neurologic/Psychiatric: grossly intact (moves all extremities) Skin: No rash on exposed areas, No ulcerations on exposed areas Data Review Labs Laboratory Tests 12/27/21 20:54: White Blood Count 5.6, Red Blood Count 3.89, Hemoglobin 11.8, Hematocrit 37, Me an Corpuscular Volume 95, Mean Corpuscular Hemoglobin 30, Mean Corpuscular Hemoglobin Concent 32, Red Cell Distribution Width 15.0H, Platelet Count 284, Mean Platelet Volume 11.1, Immature Granulocyte % (Auto) 0, Neutrophils (%) (Auto) 46, Lymphocytes (%) (Auto) 41, Monocytes (%) (Auto) 10, Eosinophils (%) (Auto) 2, Basophils (%) (Auto) 0, Neutrophils # (Auto) 2.5, Lymphocytes # (Auto) 2.3, Monocytes # (Auto) 0.6, Eosinophils # (Auto) 0.1, Basophils # (Auto) 0.0, Immature Granulocyte # (Auto) 0.0, Prothrombin Time 13.6, INR Comment 1.0, Activated Partial Thromboplast Time 27, Sodium Level 137, Potassium Level 4.8, Chloride Level 105, Carbon Dioxide Level 17L, Anion Gap 15H, Blood Urea Nitrogen 44H, Creatinine 2.24H, Estimat Glomerular Filtration Rate 24, BUN/Creatinine Ratio 20, Glucose Level 181H, Calcium Level 9.5, Corrected Calcium 9.4, Magnesium Level 1.6, Total Bilirubin 0.4, Aspartate Amino Transf (AST/SGOT) 20, Alanine Aminotransferase (ALT/SGPT) 20, Alkaline Phosphatase 57, Myoglobin 83.4, Troponin I < 0.028, B-Type Natriuretic Peptide 75.5, Total Protein 7.0, Albumin 4.1 12/27/21 22:14: Urine Color YELLOW, Urine Clarity CLEAR, Urine pH 5.5, Urine Specific [place] >=1.030, Urine Protein NEGATIVE, Urine Glucose (UA) NEGATIVE, Urine Ketones NEGATIVE, Urine Nitrite NEGATIVE, Urine Bilirubin 1+H, Urine Urobilinogen 0.2, Urine Leukocyte Esterase NEGATIVE, Urine RBC (Auto) NEGATIVE, Urine RBC NONE, Urine WBC RARE, Urine Squamous Epithelial Cells 0-2, Urine Crystals NONE, Urine Bacteria MODERATEH, Urine Casts NONE, Urine Mucus NEGATIVE, Urine Culture Indicated YES 12/28/21 06:18: White Blood Count 5.5, Red Blood Count 3.47L, Hemoglobin 10.5L, Hematocrit 33L, Mean Corpuscular Volume 95, Mean Corpuscular Hemoglobin 30, Mean Corpuscular Hemoglobin Concent 32, Red Cell Distribution Width 14.9H, Platelet Count 243, Mean Platelet Volume 11.0, Immature Granulocyte % (Auto) 0, Neutrophils (%) (Auto) 36L, Lymphocytes (%) (Auto) 53H, Monocytes (%) (Auto) 8, Eosinophils (%) (Auto) 3, Basophils (%) (Auto) 1, Neutrophils # (Auto) 2.0, Lymphocytes # (Auto) 2.9, Monocytes # (Auto) 0.4, Eosinophils # (Auto) 0.2, Basophils # (Auto) 0.0, Immature Granulocyte # (Auto) 0.0, Sodium Level 137, Potassium Level 4.3, Chloride Level 109H, Carbon Dioxide Level 17L, Anion Gap 11, Blood Urea Nitrogen 39H, Creatinine 1.59H, Estimat Glomerular Filtration Rate 36, BUN/Creatinine Ratio 25, Glucose Level 132H, Calcium Level 9.3, Triglycerides Level 221H, Cholesterol Level 108, LDL Cholesterol Direct 46, VLDL Cholesterol 44H, HDL Cholesterol 28L Radiology NAME: ALAN HYATT [facility] REC#: [id number] PT STATUS: REG ER : 1955 PHYSICIAN: MAURA HENAO APRN ADMIT DATE: 12/27/21/ER Signed Date of Exam:12/27/21 CHEST 1 VIEW, AP/PA ONLY CHEST 1 VIEW, AP/PA ONLY Indication: Chest pain. Comparison: 10/04/2016 Findings: No focal airspace disease in the visualized lungs. Please note that the posterior lower lobes are poorly evaluated by portable radiography. No pleural effusion or pneumothorax. Normal cardiomediastinal silhouette. Impression: 1. No acute cardiopulmonary process by portable radiography. Dictated by: Dictated on workstation # [id number] Dict: 12/27/212102 Trans: 12/27/212102 [facility] [id number] Interpreted by: BRENDEN CLAROS MD Electronically signed by: BRENDEN CLAROS MD 12/27/212102 ECG Impression ECG Comment SR with PVC's A/P-Cardiology Assessment/Admission Diagnosis Arrhythmia - Episode of P. a-flutter first document on telemetry strip of 12-28-21 (during this hospitalization) - Freq PVC's Echocardiogram from 11-29-21 at [facility] showed LVEF 50%. Mild diastolic dysfunction. LVEF 75% Kelly Mendoza dz - h/o bilat STA-MCA bypass (2017, 2019) - has been on tx with Brilinta and ASA advised for 3 months (reported failed Plavix in the past per [facility] notes of 2-22-22) H/O CVA - x4 - per documents of 12-21-21 from [facility] - prior h/o L occipital infarct - Most recent acute ischemic right ASSOCIATE VICE PRESIDENT stroke with cortical blindness and seizure in Oct 2021 H/O seizure disorder HTN HLD DM 2 CKD 3 with SU - renal function improved with IVF hydration Discussion and Recomendations Complex management d/t multiple comorbidities as listed above Documented episode of a-flutter first seen on tele of 12-28-21 with a slow ventricular response (not previously documented following review of most recent documentation from [facility] that we have available to us) In the setting of previous documented ischemic stroke and newly diagnosed p. a- flutter we advise OAC with Eliquis for stroke prophylaxis d/t blood clot stroke d/t P.A-flutter She is currently on Brilinta and ASA. Having her on all 3 agents increases her risk bleeding. We therefore advise stopping Brilinta, but continuing ASA. We are stopping BB d/t bradycardia We advise close f/u on lab to corrrect any electrolyte abnormalities Further recs will be based on her hospital course We would like to thank Dr. Caceres for this consult Clinical Quality Measures AMI/AHF: ASA po Prior to arrival: RENEE Patel Dec 28, 2021 10:55
[2021-12-28] MEDS ORDERED: CALCIUM CARBONATE 500 MG (TUMS) TAB.CHEW PO PRN (12:00)
[2021-12-28] MEDS ORDERED: SENNOSIDES 8.6 MG (SENOKOT) TAB PO PRN (12:00)
[2021-12-28 12:05] VITALS: BP 136/53
--- NOTE | 2021-12-28 15:29 | Occupational Therapy Eval ---
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 Social History Current Living Status: Children (son) ADL-Prior Level of Function SCALE: Activities may be completed with or without assistive devices. 0-Brwbuftvdu-qkmrsfb completes the activity by him/herself with no assistance from a helper. 5-Set-up or Clean-up Assistance-helper sets up or cleans up; patient completes activity. [place] assists only prior to or following the activity. 4-Supervision or Touching Assistance-helper provides verbal cues and/or touching/steadying and/or contact guard assistance as patient completes activity. Assistance may be provided throughout the activity or intermittently. 3-Partial/Moderate Assistance-helper does LESS THAN HALF the effort. [place] lifts, holds or supports trunk or limbs, but provides less than half the effort. 2-Substantial/Maximal Assistance-helper does MORE THAN HALF the effort. [place] lifts or holds trunk or limbs and provides more than half the effort. 9-Jrflfyzqc-xwllcu does ALL the effort. Patient does none of the effort to complete the activity. Or, the assistance of 2 or more helpers is required for the patient to complete the activity. If activity was not attempted, code reason: 7-Patient Refused. 9-Not Applicable-not attempted and the patient did not perform the activity befo re the current illness, exacerbation or injury. 10-Not Attempted due to Environmental Limitations-(lack of equipment, weather re straints, etc.). 88-Not Attempted due to Medical Conditions or Safety Concerns. ADL PLOF Comments Pt reports IND with ADLs at PLOF, able to navigate her home environment in order to get dressed and bathe herself. Per clinical judgment, pt would require set up assistance with cooking/eating, and set up/SBA for cues with other ADLs due to recent visual impairment. Self Care: Needed Some Help Functional Cognition: Independent OT Current Status Subjective Pt laying in bed, agreeable to OT tx. Pt reports she is unable to see anything, even light perception. OT talked with pt's nurse prior to evaluation, nurse requesting information on strategies for increasing independence with feeding. Mental Status/Objective Patient Orientation: Person, Confused, Place Attachments: IV Current Hand Dominance: Right Upper Extremity ROM WFL Upper Extremity Coordination WFL coordination. Limited by visual deficit. Upper Extremity Strength grossly 4/5 ADL-Treatment Eating (QC): 3 (Per nursing report, assistance with meals due to visual impairment.) Other Treatments Pt in bed, agreeable to OT Tx. 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 Pt's LOF since pt became blind unkown, pt indicates she was able to manage but accuracy of information unknown. UE function assessed, pt has good gross grasp bilaterally. Pt would be able to hold utensils, but difficulty orienting utensils due to blindness. OT discussed strategies with pt, including having staff member set up food for pt (cut food, open containers), and to have staff inform pt where foods are located on her tray. OT also talked about finger foods with pt in order to increase her independence, but pt did not appear interested in finger foods at this time. OT also provided education on community resources, including the [employer] for audiobooks, as pt enjoys reading. Pt tearful throughout session, OT provided support and therapeutic listening to pt. OT informed pt of OT POC with addressing further concerns pt may have with ADLs for discharge, pt in aggreement. Post tx, pt in bed, call light in reach and all needs met. Squeeze bulb call light in reach. Education OT Patient Education: Correct positioning, Energy conservation, Modified ADL techniques, Progress toward Goal/Update tx plan, Purpose of tx/functional activities, Rehab process Teaching Recipient: Patient Teaching Methods: Discussion Response to Teaching: Verbalize Understanding OT Transferrer Goals Residential Goals Time Frame: Jan 05, 2022 Eating (QC): 5 Oral Hygiene (QC): 5 Toileting Hygiene (QC): 4 Shower/Bathe Self (QC): 4 Upper Body Dressing (QC): 5 Lower Body Dressing (QC): 5 On/Off Footwear (QC): 5 Additional Goals: 1-Demonstrate ADL Tasks, 2-Verbalize Understanding, 3- ImproveStrength/Alison 1=Demonstrate adherence to instructed precautions during ADL tasks. 2=Patient will verbalize/demonstrate understanding of assistive devices/modifications for ADL. 3=Patient will improve strength/tolerance for activity to enable patient to perform ADL's. OT Education/Plan Problem List/Assessment Assessment: Decreased Activ Tolerance, Impaired I ADL's, Impaired Self-Care Skills, Visual-Perceptual Deficit Pt would benefit from short term skilled OT services in order to provide education on adaptive strategies for visual impairment, in order to increase independence with ADLs. Discharge Recommendations Plan/Recommendations: Continue POC Treatment Plan/Plan of Care Patient would benefit from OT for education, treatment and training to promote independence in ADL's, mobility, safety and/or upper extremity function for ADL's. Plan of Care: ADL Retraining, Functional Mobility, UE Funct Exercise/Act, Visual/Perceptual Retrain Treatment Duration: Jan 05, 2022 Frequency: 3 times per week (3-5 times per week) Estimated Hrs Per Day: .25 hour per day Rehab Potential: Fair Time/GCodes Start Time: 15:00 Stop Time: 15:14 Total Time Billed (hr/min): 14 Billed Treatment Time 1, BRET KING OT Dec 28, 2021 15:28
[2021-12-28] MEDS: ACETAMINOPHEN 500 MG TAB (TYLENOL) PO PRN ×2 (15:36→21:32)
--- NOTE | 2021-12-28 15:39 | Consultation-Cardiology ---
HPI-Cardiology Cardiology Consultation: Date of Consultation 12/28/21 Time Seen by a Provider: 15:00 Date of Admission Attending Physician Sarah Caceres MD Admitting Physician [place] Consulting Physician DENILSON COMBS MD, MA, FACP, [facility], [facility] Physician requesting Card consult: Dr Caceres HPI: Chief Complaint: Reson for Cardiology consult: Bradycardia and PVCs Ms. Montague is a 66 yr old female who has been admitted to [facility] from the ED. She is unable to recall the events leading up to her admission to the hospital. She has difficulty finding words at times. She does not report any c/o CP, SOB, syncope or near syncope. She reports she has a feeling of palpitations, describing it as a feeling of skipped beats. She denies any nv/d. She reports she has not been eating well d/t food at the facility where is is currently residing not tasting good. She reports d/t [place] dz has visual impairment. She has been following with [facility] neurology. Review of Systems-Cardiology Review of Systems Constitutional: No chills, No fever, No malaise Eyes: As described under HPI Ears/Nose/Throat: No epistaxis, No recent hearing loss Respiratory: As described under HPI Cardiovascular: As described under HPI Gastrointestinal: As described under HPI Genitourinary: No dysuria Musculoskeletal: no symptoms reported Skin: no symptoms reported Psychiatric/Neurological: anxiety, other (chronic headache); No focal weakness, No syncope Hematologic: No bleeding abnormalities OSO-Ejydfl-Ttanwq Hx Patient Social History Smoking Status: Former Smoker Former smoker/When Quit: Apr 07, 1999 2nd Hand Smoke Exposure: No Have you traveled recently?: No Alcohol Use?: No Pt feels they are or have been: No Immunizations Up To Date Tetanus Booster (TDap): Unknown Date of Pneumonia Vaccine: Jul 03, 2016 Date of Influenza Vaccine: Jul 03, 2016 Past Medical History PMH As described under Assessment. Family Medical History Family Medical History: She reports he father had CAD. She reports he mother had CVA's. Allergies and Home Medications Allergies Coded Allergies: No Known Drug Allergies (Unverified , 04/24/13) Patient Home Medication List Home Medication List Reviewed: Yes Acetaminophen (Tylenol Extra Strength) 500 Mg Tablet, 1,000 MG PO Q6H PRN for PAIN-MILD (1-4), (Reported) Entered as Reported by: AMELIE ANDREW on 12/28/21958 Last Action: Continued Aspirin (Aspirin EC) 81 Mg Tablet.dr, 81 MG PO DAILY, (Reported) Entered as Reported by: AMELIE ANDREW on 12/28/21958 Last Action: Continued Atorvastatin Calcium (Atorvastatin Calcium) 80 Mg Tablet, 80 MG PO 1800, (Reported) Entered as Reported by: AMELIE ANDREW on 12/28/21958 Last Action: Continued Calcium Carbonate (Tums) 200 Mg Tab.chew, 500 MG PO Q12H PRN for INDIGESTION, (Reported) Entered as Reported by: AMELIE ANDREW on 12/28/21958 Last Action: Continued Escitalopram Oxalate (Lexapro) 5 Mg Tablet, 5 MG PO 1800, (Reported) Entered as Reported by: AMELIE ANDREW on 12/28/21958 Last Action: Converted Ezetimibe (Zetia) 10 Mg Tablet, 10 MG PO DAILY, (Reported) Entered as Reported by: AMELIE ANDREW on 12/28/21958 Last Action: Continued Levetiracetam (Keppra) 750 Mg Tablet, 1,500 MG PO 0600,1800, (Reported) Entered as Reported by: AMELIE ANDREW on 12/28/21958 Last Action: Converted Lisinopril (Lisinopril) 10 Mg Tablet, 10 MG PO DAILY, (Reported) Entered as Reported by: AMELIE ANDREW on 12/28/21958 Last Action: Held Magnesium Oxide (Magnesium) 400 Mg Tablet, 400 MG PO DAILY, (Reported) Entered as Reported by: AMELIE ANDREW on 12/28/21958 Last Action: Converted Melatonin (Melatonin) 5 Mg Tablet, 10 MG PO 1800, (Reported) Entered as Reported by: AMELIE ANDREW on 12/28/21958 Last Action: Converted Metformin HCl (Metformin HCl) 1,000 Mg Tablet, 1,000 MG PO 0600,1800, (Reported) Entered as Reported by: AMELIE ANDREW on 12/28/21958 Last Action: Held Metoprolol Tartrate (Metoprolol Tartrate) 25 Mg Tablet, 25 MG PO 0600,1800, (Reported) Entered as Reported by: AMELIE ANDREW on 12/28/21958 Last Action: Held Sennosides (Senna) 8.6 Mg Tablet, 8.6 MG PO Q12H PRN for CONSTIPATION-4TH LINE, (Reported) Entered as Reported by: AMELIE ANDREW on 12/28/21958 Last Action: Continued Ticagrelor (Brilinta) 90 Mg Tablet, 90 MG PO 0600,1800, (Reported) Entered as Reported by: AMELIE ANDREW on 12/28/21958 Last Action: Continued Discontinued Medications Acetaminophen (Acetaminophen) 325 Mg Tablet, 650 MG PO Q6H PRN for PAIN, (Reported) Discontinued Reason: No Longer Taking Entered as Reported by: JUAN FRANCISCO GONZALEZ on 10/02/161712 Last Action: Discontinued Apixaban (Eliquis) 5 Mg Tablet, 5 MG PO BID Discontinued Reason: No Longer Taking Prescribed by: DANIEL KRISHNA on 10/04/16 1249 Last Action: Discontinued Atorvastatin Calcium (Atorvastatin Calcium) 80 Mg Tablet, 80 MG PO DAILY, (Reported) Discontinued Reason: No Longer Taking Entered as Reported by: JUAN FRANCISCO GONZALEZ on 10/02/161713 Last Action: Discontinued Cyclobenzaprine Hcl (Flexeril) 10 Mg Tablet, 10 MG PO HS PRN for MUSCLE SPASMS, (Reported) Discontinued Reason: No Longer Taking Entered as Reported by: ANDREAS CHINCHILLA on 04/24/13 1003 Last Action: Discontinued Hum Insulin Nph/Reg Insulin Hm (Relion Novolin 70-30 Vial) 10 Ml Vial, 20-30 UNITS SQ BID, (Reported) Discontinued Reason: No Longer Taking Entered as Reported by: ANDREAS CHINCHILLA on 04/24/13 1003 Last Action: Discontinued Insulin Human Regular (Novolin R (Sliding Scale-A)) 10 Unit/0.1 Ml Soln, SC UD, (Reported) Discontinued Reason: No Longer Taking Entered as Reported by: YUNIOR BENITEZ on 04/07/15 1508 Last Action: Discontinued Lisinopril/Hydrochlorothiazide (Lisinopril-Hctz 20-12.5 mg Tab) 1 Each Tablet, 1 TAB PO DAILY, (Reported) Discontinued Reason: No Longer Taking Entered as Reported by: JUAN FRANCISCO GONZALEZ on 10/02/16 171 Last Action: Discontinued Metformin Hcl (Metformin 1000 Mg) 1,000 Mg Tablet, 1,000 MG PO BID WITH MEALS, (Reported) Discontinued Reason: No Longer Taking Entered as Reported by: ANDREAS CHINCHILLA on 04/24/13 1003 Last Action: Discontinued Tramadol Hcl (Ultram) 50 Mg Tab, 100 MG PO Q8H PRN for PAIN, (Reported) Discontinued Reason: No Longer Taking Entered as Reported by: ANDREAS CHINCHILLA on 04/24/13 1003 Last Action: Discontinued Trazodone Hcl (Trazodone Hcl) 50 Mg Tablet, 50 MG PO HS, (Reported) Discontinued Reason: No Longer Taking Entered as Reported by: YUNIOR BENITEZ on 04/07/15 1509 Last Action: Discontinued Physical Exam-Cardiology Physical Exam Vital Signs/I&O 12/28/21 12/28/21 12/28/21 12/28/21 04:06 08:00 08:00 08:48 Temp 36.3 36.1 Pulse 39 69 33 Resp 18 18 B/P (MAP) 133/55 (81) 118/53 (74) Pulse Ox 96 99 O2 Delivery Room Air Room Air Room Air 12/28/21 12/28/21 12:05 13:00 Temp 36.5 Pulse 46 70 Resp 20 B/P (MAP) 136/53 (80) Pulse Ox 100 O2 Delivery Room Air 12/28/21 00:00 Intake Total 1000 ml Balance 1000 ml Capillary Refill : Constitutional: well-developed, well-nourished, other (AAO - speech during conversation is broken with word search at times) HEENT: hearing is well preserved, oral hygience is good Neck: No carotid bruit; carotid pulses are 2 + bilaterally Respiratory: No accessory muscle use, No respiratory distress; chest expansion is symmetric, chest is bilaterally symmetric, lungs clear to auscultation Cardiovascular: irregularly irregular; No JVD; S1 and S2 Gastrointestinal: No tender; soft, round, audible bowel sounds Extremities: no lower extremity edema bilateral Neurologic/Psychiatric: grossly intact (moves all extremities) Skin: No rash on exposed areas, No ulcerations on exposed areas Data Review Labs Laboratory Tests 12/27/21 20:54: White Blood Count 5.6, Red Blood Count 3.89, Hemoglobin 11.8, Hematocrit 37, Mean Corpuscular Volume 95, Mean Corpuscular Hemoglobin 30, Mean Corpuscular Hemoglobin Concent 32, Red Cell Distribution Width 15.0H, Platelet Count 284, Mean Platelet Volume 11.1, Immature Granulocyte % (Auto) 0, Neutrophils (%) (Auto) 46, Lymphocytes (%) (Auto) 41, Monocytes (%) (Auto) 10, Eosinophils (%) (Auto) 2, Basophils (%) (Auto) 0, Neutrophils # (Auto) 2.5, Lymphocytes # (Auto) 2.3, Monocytes # (Auto) 0.6, Eosinophils # (Auto) 0.1, Basophils # (Auto) 0.0, Immature Granulocyte # (Auto) 0.0, Prothrombin Time 13.6, INR Comment 1.0, Activated Partial Thromboplast Time 27, Sodium Level 137, Potassium Level 4.8, Chloride Level 105, Carbon Dioxide Level 17L, Anion Gap 15H, Blood Urea Nitrogen 44H, Creatinine 2.24H, Estimat Glomerular Filtration Rate 24, BUN/Creatinine Rat io 20, Glucose Level 181H, Calcium Level 9.5, Corrected Calcium 9.4, Magnesium Level 1.6, Total Bilirubin 0.4, Aspartate Amino Transf (AST/SGOT) 20, Alanine Aminotransferase (ALT/SGPT) 20, Alkaline Phosphatase 57, Myoglobin 83.4, Tropo arnel I < 0.028, B-Type Natriuretic Peptide 75.5, Total Protein 7.0, Albumin 4.1 12/27/21 22:14: Urine Color YELLOW, Urine Clarity CLEAR, Urine pH 5.5, Urine Specific [place] >=1.030, Urine Protein NEGATIVE, Urine Glucose (UA) NEGATIVE, Urine Ketones NEGATIVE, Urine Nitrite NEGATIVE, Urine Bilirubin 1+H, Urine Urobilinogen 0.2, Urine Leukocyte Esterase NEGATIVE, Urine RBC (Auto) NEGATIVE, Urine RBC NONE, Urine WBC RARE, Urine Squamous Epithelial Cells 0-2, Urine Crystals NONE, Urine Bacteria MODERATEH, Urine Casts NONE, Urine Mucus NEGATIVE, Urine Culture Indicated YES 12/28/21 06:18: White Blood Count 5.5, Red Blood Count 3.47L, Hemoglobin 10.5L, Hematocrit 33L, Mean Corpuscular Volume 95, Mean Corpuscular Hemoglobin 30, Mean Corpuscular Hem oglobin Concent 32, Red Cell Distribution Width 14.9H, Platelet Count 243, Mean Platelet Volume 11.0, Immature Granulocyte % (Auto) 0, Neutrophils (%) (Auto) 36L, Lymphocytes (%) (Auto) 53H, Monocytes (%) (Auto) 8, Eosinophils (%) (Auto) 3, Basophils (%) (Auto) 1, Neutrophils # (Auto) 2.0, Lymphocytes # (Auto) 2.9, Monocytes # (Auto) 0.4, Eosinophils # (Auto) 0.2, Basophils # (Auto) 0.0, Immature Granulocyte # (Auto) 0.0, Sodium Level 137, Potassium Level 4.3, Chloride Level 109H, Carbon Dioxide Level 17L, Anion Gap 11, Blood Urea Nitrogen 39H, Creatinine 1.59H, Estimat Glomerular Filtration Rate 36, BUN/Creatinine Ratio 25, Glucose Level 132H, Calcium Level 9.3, Triglycerides Level 221H, Cholesterol Level 108, LDL Cholesterol Direct 46, VLDL Cholesterol 44H, HDL Cholesterol 28L A/P-Cardiology Assessment/Admission Diagnosis Arrhythmia - Episode of P. a-flutter first document on telemetry strip of 12-28-21 (during this hospitalization) - Rush BROWN's Echocardiogram from 11-29-21 at [facility] showed LVEF 50%. Mild diastolic dysfunction. LVEF 75% Kelly Mendoza dz - h/o bilat STA-MCA bypass (2017, 2019) - has been on tx with Brilinta and ASA advised for 3 months (reported failed Plavix in the past per [facility] notes of 12-21-21) H/O CVA - x4 - per documents of 12-21-21 from [facility] - prior h/o L occipital infarct - Most recent acute ischemic right [place] stroke with cortical blindness and seizure in Oct 2021 H/O seizure disorder HTN HLD DM 2 CKD 3 with SU - renal function improved with IVF hydration Discussion and Recomendations Complex management d/t multiple comorbidities as listed above Documented episode of a-flutter first seen on tele of 12-28-21 with a slow ventricular response (not previously documented following review of most recent documentation from [facility] that we have available to us) In the setting of previous documented ischemic stroke and newly diagnosed p. a-f lutter we advise OAC with Eliquis for stroke prophylaxis d/t blood clot stroke d/t P.A-flutter She is currently on Brilinta and ASA. Having her on all 3 agents increases her risk of bleeding. We therefore advise stopping Brilinta, but continuing ASA and adding Eliquis We are stopping BB d/t bradycardia We advise close f/u on lab to corrrect any electrolyte abnormalities Further recs will be based on her hospital course I discussed all of the above in detail with Dr Caceres on the phone Clinical Quality Measures AMI/AHF: ASA po Prior to arrival: DENILSON Babin MD FACP FAC CCDS Dec 28, 2021 15:39
[2021-12-28 15:45] VITALS: BP 145/63
[2021-12-28] MEDS ORDERED: MELATONIN 10 MG TABLET PO SCH (18:00)
[2021-12-28] MEDS ORDERED: NON-FORMULARY MEDICATION 1 EA EA (Melatonin 10 MG) PO SCH (18:00)
[2021-12-28] MEDS ORDERED: NON-FORMULARY MEDICATION 1 EA EA (Escitalopram Oxalate (Lexapro) 5 MG) PO SCH (18:00)
[2021-12-28] MEDS ORDERED: TICAGRELOR 90 MG TABLET (BRILINTA) PO SCH (18:00)
[2021-12-28] MEDS ORDERED: LEVETIRACETAM 1500 MG PO SCH (18:00)
[2021-12-28 20:20] VITALS: BP 142/63
[2021-12-28] MEDS: APIXABAN 5 MG (ELIQUIS) TABLET PO SCH (21:32)
[2021-12-29 00:13] VITALS: BP 132/58
[2021-12-29 04:12] VITALS: BP 194/73
[2021-12-29 05:15] VITALS: BP 189/79
[2021-12-29] MEDS: LACTATED RINGERS 1,000 ML IV SCH ×2 (06:00→07:51)
[2021-12-29] MEDS: ACETAMINOPHEN 500 MG TAB (TYLENOL) PO PRN (06:01)
[2021-12-29 06:11] LABS: HEMATOCRIT 34 % (35-52); HEMOGLOBIN 10.8 g/dL (11.5-16.0); MEAN CORPUSCULAR HEMOGLOBIN 30 pg (25-34); MEAN CORPUSCULAR HGB CONC 32 g/dL (32-36); MEAN CORPUSCULAR VOLUME 93 fL (80-99); MEAN PLATELET VOLUME 10.8 fL (9.0-12.2); PLATELET COUNT 213 10^3/uL (130-400)
[2021-12-29 06:19] VITALS: BP 172/80
[2021-12-29 06:30] LABS: POTASSIUM 4.3 MMOL/L (3.6-5.0)
[2021-12-29 06:31] LABS: CALCIUM 9.1 MG/DL (8.5-10.1)
[2021-12-29 06:36] LABS: CREATININE SERUM 0.86 MG/DL (0.60-1.30)
[2021-12-29 06:38] LABS: MAGNESIUM 1.2 MG/DL (1.6-2.4)
[2021-12-29] MEDS ORDERED: MAGNESIUM 1 GM/100 ML IVPB 100 ML IV ONE (08:00)
[2021-12-29] MEDS: APIXABAN 5 MG (ELIQUIS) TABLET PO SCH ×2 (08:30→10:34)
[2021-12-29] MEDS: ASPIRIN E.C. 81 MG (ECOTRIN) TAB PO SCH ×2 (08:30→08:49)
[2021-12-29] MEDS: eZETimibe 10 MG (ZETIA) TABLET PO SCH ×2 (08:31→08:49)
[2021-12-29] MEDS: MAGNESIUM OXIDE (MAG-OX)400 MG TAB PO SCH ×2 (08:31→08:49)
[2021-12-29] MEDS: lisINopril 10 MG (PRINIVIL) TABLET PO SCH ×2 (08:31→08:49)
[2021-12-29 08:39] VITALS: BP 178/77
--- NOTE | 2021-12-29 08:45 | Occupational Ther Daily Note ---
OT Current Status-Daily Note Subjective Pt in bed, agreeable to OT tx. Throughout session, pt kept repeating "I was confused". When asked how she was confused pt unable to say, when OT asked if pt woke up and didn't know where she was, pt able to respond "yes" Mental Status/Objective Patient Orientation: Person, Confused Attachments: IV ADL-Treatment Therapy Code Descriptions/Definitions Functional [place] Measure: 0=Not Assessed/NA 4=Minimal Assistance 1=Total Assistance 5=Supervision or Setup 2=Maximal Assistance 6=Modified [place] 3=Moderate Assistance 7=Complete IndependenceSCALE: Activities may be completed with or without assistive devices. 2-Yvndjbrqcx-qqcmnqo completes the activity by him/herself with no assistance from a helper. 5-Set-up or Clean-up Assistance-helper sets up or cleans up; patient completes activity. [place] assists only prior to or following the activity. 4-Supervision or Touching Assistance-helper provides verbal cues and/or touching/steadying and/or contact guard assistance as patient completes activity. Assistance may be provided throughout the activity or intermittently. 3-Partial/Moderate Assistance-helper does LESS THAN HALF the effort. [place] lifts, holds or supports trunk or limbs, but provides less than half the effort. 2-Substantial/Maximal Assistance-helper does MORE THAN HALF the effort. [place] lifts or holds trunk or limbs and provides more than half the effort. 7-Jyikxnxqd-yqesnf does ALL the effort. Patient does none of the effort to complete the activity. Or, the assistance of 2 or more helpers is required for the patient to complete the activity. If activity was not attempted, code reason: 7-Patient Refused. 9-Not Applicable-not attempted and the patient did not perform the activity before the current illness, exacerbation or injury. 10-Not Attempted due to Environmental Limitations-(lack of equipment, weather restraints, etc.). 88-Not Attempted due to Medical Conditions or Safety Concerns. Eating (QC): 5 (set up per pt report. Pt able to eat more independently using plate guard.) Oral Hygiene (QC): 4 (SBA, pt required cues for sequencing of task and locating objects.) On/Off Footwear: 3 (Mod A. assist to thread over toes, pt then able to pull up.) Toileting Hygiene (QC): 4 (SBA, pt able to manage hygiene) Toilet Transfer (QC): 4 (SBA on/off toilet.) Other Treatment Pt laying in bed, transferred supine to sit EOB independently. Pt then completed oral care at EOB. Pt requests to use bathroom, pt able to locate bathroom without cues, SBA. Pt completed toileting, then required assistance to locate sink, assistance to turn water on, and assistance to place soap in hands. Pt able to wash hands, then dry after OT placed paper towels in her hand. Pt required guidance, SBA to locate bed, transferred EOB with SBA, then supine independently. Pt able to comb hair after set up assistance. Post tx, pt in bed, squeeze bulb call light in reach and all needs met. Education OT Patient Education: Correct positioning, Energy conservation, Modified ADL techniques, Progress toward Goal/Update tx plan, Purpose of tx/functional activities Teaching Recipient: Patient Teaching Methods: Discussion Response to Teaching: Verbalize Understanding OT Dance Historian Goals Dance Historian Goals Time Frame: Jan 05, 2022 Eating (QC): 5 Oral Hygiene (QC): 5 Toileting Hygiene (QC): 4 Shower/Bathe Self (QC): 4 Upper Body Dressing (QC): 5 Lower Body Dressing (QC): 5 On/Off Footwear (QC): 5 Additional Goals: 1-Demonstrate ADL Tasks, 2-Verbalize Understanding, 3- ImproveStrength/Alison 1=Demonstrate adherence to instructed precautions during ADL tasks. 2=Patient will verbalize/demonstrate understanding of assistive devices/modifications for ADL. 3=Patient will improve strength/tolerance for activity to enable patient to perform ADL's. OT Education/Plan Problem List/Assessment Assessment: Decreased Activ Tolerance, Decreased UE Strength, Impaired I ADL's, Impaired Self-Care Skills, Visual-Perceptual Deficit Pt would benefit from short term skilled OT services in order to provide education on adaptive strategies for visual impairment, in order to increase independence with ADLs. Discharge Recommendations Plan/Recommendations: Continue POC Treatment Plan/Plan of Care Patient would benefit from OT for education, treatment and training to promote independence in ADL's, mobility, safety and/or upper extremity function for ADL's. Plan of Care: ADL Retraining, Functional Mobility, UE Funct Exercise/Act, Visual/Perceptual Retrain Treatment Duration: Jan 05, 2022 Frequency: 3 times per week (3-5 times per week) Estimated Hrs Per Day: .25 hour per day Rehab Potential: Fair Time/GCodes Start Time: 08:11 Stop Time: 08:34 Total Time Billed (hr/min): 23 Billed Treatment Time 1, ADL 2 BRET CUEVAS OT Dec 29, 2021 08:45
[2021-12-29] MEDS ORDERED: NON-FORMULARY MEDICATION 1 EA EA (Magnesium Oxide (Magnesium) 400 MG) PO SCH (09:00)
[2021-12-29] MEDS ORDERED: amLODIPine 10 MG (NORVASC) TAB PO NR (09:30)
--- NOTE | 2021-12-29 10:35 | Progress Note - Cardiology ---
Cardiology SOAP Progress Note Subjective: Headaches better today (not resolved). These are chronic No cp, or palp or syncope No shortness of breath at rest No n/v/d Gen malaise and weaknes Objective: I&O/Vital Signs 12/29/21 12/29/21 12/29/21 12/29/21 00:13 01:00 04:12 05:15 Temp 35.7 36.2 Pulse 54 69 54 Resp 18 18 B/P (MAP) 132/58 (82) 194/73 (113) 189/79 (115) Pulse Ox 97 98 O2 Delivery Room Air Room Air 12/29/21 12/29/21 12/29/21 06:19 07:00 08:39 Temp 36.6 Pulse 67 40 Resp 22 B/P (MAP) 172/80 (110) 178/77 (110) Pulse Ox 98 O2 Delivery Room Air 12/29/21 00:00 Intake Total 200 ml Balance 200 ml Weight (Pounds): 231 Weight (Ounces): 0.0 Weight (Calculated Kilograms): 104.903167 Constitutional: AAO x 3, well-developed, well-nourished, other (AAO - speech during conversation is broken with word search at times) Respiratory: No accessory muscle use, No respiratory distress; chest expansion is symmetric, chest is bilaterally symmetric, lungs clear to auscultation Cardiovascular: irregularly irregular; No JVD; S1 and S2 Gastrointestional: No tender; soft, round, audible bowel sounds Extremities: no lower extremity edema bilateral Neurologic/Psychiatric: other (has vision loss, moves limbs equally) Skin: No rash on exposed areas, No ulcerations on exposed areas Results/Procedures: Labs Laboratory Tests 12/29/21 06:03: White Blood Count 5.0, Red Blood Count 3.61L, Hemoglobin 10.8L, Hematocrit 34L, Mean Corpuscular Volume 93, Mean Corpuscular Hemoglobin 30, Mean Corpuscular Hemoglobin Concent 32, Red Cell Distribution Width 14.6H, Platelet Count 213, Mean Platelet Volume 10.8, Sodium Level 141, Potassium Level 4.3, Chloride Level 112H, Carbon Dioxide Level 18L, Anion Gap 11, Blood Urea Nitrogen 21H, Creatinine 0.86, Estimat Glomerular Filtration Rate 74, BUN/Creatinine Ratio 24, Glucose Level 160H, Calcium Level 9.1, Magnesium Level 1.2L, Thyroid Stimulating Hormone (TSH) 1.01 Laboratory Tests 12/27/21 20:54 12/28/21 06:18 12/29/21 06:03 A/P: Assessment: Arrhythmia - Episode of P. a-flutter first document on telemetry strip of 12-28-21 (during this hospitalization) - Apixaban added on 12/29/21. Brilinta d/c'd. ASA continued - Freq PVC's Echocardiogram from 11-29-21 at [facility] showed LVEF 50%. Mild diastolic dysfunction. 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 a-flutter we advise OAC with Eliquis for stroke prophylaxis d/t blood clot stroke d/t P.A-flutter. Previously, was on Brilinta and ASA. Having her on all 3 agents increases her risk of bleeding. We therefore Brilinta while continuing ASA and adding Eliquis * We are stopping BB d/t bradycardia * We are adding amlodipine today because bp is uncontrolled * We advise close f/u on lab to corrrect any electrolyte abnormalities * Further recs will be based on her hospital course Clinical Quality Measures AMI/AHF: ASA po Prior to arrival: DENILSON Babin MD FACP [facility] CCDS Dec 29, 2021 10:35
[2021-12-29] MEDS ORDERED: AMLO-250 PO (11:04)
[2021-12-29] MEDS ORDERED: APIX5TAB PO (11:04)
--- NOTE | 2021-12-29 11:06 | Discharge Inst-Skilled Nursing ---
Discharge Inst-Skilled NF Consult/Follow Up/Orders Skilled NF Admit to: [facility] Certifications SNF I certify that SNF services are required to be given on an inpatient basis be cause of the above named patient's need for halfway care on a continuing basis for the conditions(s) for which he/she was receiving inpatient hospital services prior to his/her transfer to the SNF. [facility] Order: Nursing Services, Systems Manager-Evaluate & Treat, Physical Therapy-Evaluate & Treat Oxygen Delivery Method: Room Air Discharge Diet: ADA Diet Daily Activity as Tolerated: Yes Resuscitation Status: Full Code Discharge Medications New, Converted or Re-Newed RX: Transmitted to Pharmacy New Medications: Amlodipine Besylate (Amlodipine Besylate) 5 Mg Tablet 10 MG PO DAILY, #30 TAB 0 Refills Apixaban (Eliquis) 5 Mg Tablet 5 MG PO BID, #60 TAB 0 Refills Continued Medications: Acetaminophen (Tylenol Extra Strength) 500 Mg Tablet 1000 MG PO Q6H PRN for PAIN-MILD (1-4), TAB Aspirin (Aspirin EC) 81 Mg Tablet.dr 81 MG PO DAILY, TAB Atorvastatin Calcium (Atorvastatin Calcium) 80 Mg Tablet 80 MG PO 1800, TAB Calcium Carbonate (Tums) 200 Mg Tab.chew 500 MG PO Q12H PRN for INDIGESTION, TAB Escitalopram Oxalate (Lexapro) 5 Mg Tablet 5 MG PO 1800, TAB Ezetimibe (Zetia) 10 Mg Tablet 10 MG PO DAILY, TAB Levetiracetam (Keppra) 750 Mg Tablet 1500 MG PO 0600,1800, TAB TAKES 2 (750MG) TABS Lisinopril (Lisinopril) 10 Mg Tablet 10 MG PO DAILY, TAB HOLD AND NOTIFY NURSE/PCP IF BP <80/50 OR >180/100 AND PULSE <50 OR >110 Magnesium Oxide (Magnesium) 400 Mg Tablet 400 MG PO DAILY, TAB Melatonin (Melatonin) 5 Mg Tablet 10 MG PO 1800, TAB TAKES 2 (5MG) TABS Metformin HCl (Metformin HCl) 1,000 Mg Tablet 1000 MG PO 0600,1800, TAB Sennosides (Senna) 8.6 Mg Tablet 8.6 MG PO Q12H PRN for CONSTIPATION-4TH LINE, TAB Discontinued Medications: Metoprolol Tartrate (Metoprolol Tartrate) 25 Mg Tablet 25 MG PO 0600,1800, TAB HOLD AND NOTIFY NURSE/PCP IF BP <80/50 OR >180/100 AND PULSE <50 OR >110 Ticagrelor (Brilinta) 90 Mg Tablet 90 MG PO 0600,1800, TAB Laz Caceres Dec 29, 2021 11:05 LAZ CACERES MD Dec 29, 2021 11:06
[2021-12-29 11:23] VITALS: BP 125/58
[2021-12-30] MEDS ORDERED: amLODIPine 5 MG (NORVASC) TAB PO SCH (09:00)
== END 2021-12-29 12:00 ==
LOC: EDUNIT# 20:31 → ER 20:32 → 4TH 22:11
PROVIDERS: ADMIT Family Medicine; ATTEND Family Medicine
DX: I49.9 Cardiac arrhythmia, unspecified (principal); N17.9 Acute kidney failure, unspecified; E11.9 Type 2 diabetes mellitus without complications; I12.9 Hypertensive chronic kidney disease with stage 1 through stage 4 chronic kidney disease, or unspecified chronic kidney disease; I67.5 Moyamoya disease; N18.31 Chronic kidney disease, stage 3a; E11.22 Type 2 diabetes mellitus with diabetic chronic kidney disease; G40.909 Epilepsy, unspecified, not intractable, without status epilepticus; I69.30 Unspecified sequelae of cerebral infarction; E78.5 Hyperlipidemia, unspecified; H54.3 Unqualified visual loss, both eyes; Z79.84 Long term (current) use of oral hypoglycemic drugs; Z87.891 Personal history of nicotine dependence; Z79.899 Other long term (current) drug therapy; Z79.82 Long term (current) use of aspirin; Z79.01 Long term (current) use of anticoagulants
CPT/HCPCS: 71045; 80048 ×2; 80053; 80061; 81000; 83735 ×2; 83874; 83880; 84443; 84484; 85025 ×2; 85027; 85610; 85730; 87088; 93005 ×2; 93041; 93306; 96360; 97166; 97535; 99284; G0378; 36415

== ENCOUNTER 2022-04-21 12:32 | Emergency (ER) | payer MEDICARE ==
[~2022-04-21] VITALS: Ht 160 cm; Wt 91.0 kg
[~2022-04-21 12:32] MED LIST changes: +ACET-2267 PO; +AMLO-250 PO; +ASPI-1238 PO; +CALC500T7 PO; +ESCI5TAB PO; +EZET10TA17 PO; +LEVE750T19 PO; +LISI10TA25 PO; +MAGN400T39 PO; +MELA5TAB14 PO; +METF-399 PO; +METO-333 PO; +SENN-234 PO; +TICA90TA PO
[2022-04-21 12:35] VITALS: BP 144/80
--- NOTE | 2022-04-21 13:09 | ED Neurological Problem ---
General Chief Complaint: Neurological Problems Stated Complaint: SEIZURE Source: patient, EMS Exam Limitations: clinical condition History of Present Illness Date Seen by Provider: Apr 21, 2022 Time Seen by Provider: 12:55 Initial Comments Patient is a 66-year-old female who presents to the emergency department today after reported seizure at home. She lives with her son, he is not immediately available for history. She is aware that she fell and hit the left side of her face. She has a history of atrial flutter and per review of the medical record has been on anticoagulants. 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 She is aware that she is in the hospital, she cannot recall the date. She can tell her name. She does not know the day of the week. On HPI, review of systems many of her answers are "I do not know". 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 Obvious right upper gaze deficit. Airway is patent and intact. No abnormal vital signs, no increased work of breathing. No physical evidence of previous emesis. The patient cannot recall what precipitated her stroke or fall. She is in a cervical collar. Timing/Duration: other (Prior to arrival) Allergies and Home Medications Allergies Coded Allergies: No Known Drug Allergies (Unverified , 04/24/13) Patient Home Medication List Home Medication List Reviewed: Yes Acetaminophen (Tylenol Extra Strength) 500 Mg Tablet, 1,000 MG PO Q6H PRN for PAIN-MILD (1-4), (Reported) Entered as Reported by: AMELIE ANDREW on 12/28/21958 Amlodipine Besylate (Amlodipine Besylate) 5 Mg Tablet, 10 MG PO DAILY Prescribed by: LAZ BILL on 12/29/21 1104 Apixaban (Eliquis) 5 Mg Tablet, 5 MG PO BID Prescribed by: LAZ BILL on 12/29/21 1104 Aspirin (Aspirin EC) 81 Mg Tablet.dr, 81 MG PO DAILY, (Reported) Entered as Reported by: AMELIE ANDREW on 12/28/21 09 Atorvastatin Calcium (Atorvastatin Calcium) 80 Mg Tablet, 80 MG PO 1800, (Reported) Entered as Reported by: AMELIE ANDREW on 12/28/21958 Calcium Carbonate (Tums) 200 Mg Tab.chew, 500 MG PO Q12H PRN for INDIGESTION, (Reported) Entered as Reported by: AMELIE ANDREW on 12/28/21958 Escitalopram Oxalate (Lexapro) 5 Mg Tablet, 5 MG PO 1800, (Reported) Entered as Reported by: AMELIE ANDREW on 12/28/21958 Ezetimibe (Zetia) 10 Mg Tablet, 10 MG PO DAILY, (Reported) Entered as Reported by: AMELIE ANDREW on 12/28/21958 Levetiracetam (Keppra) 750 Mg Tablet, 1,500 MG PO 0600,1800, (Reported) Entered as Reported by: AMELIE ANDREW on 12/28/21958 Lisinopril (Lisinopril) 10 Mg Tablet, 10 MG PO DAILY, (Reported) Entered as Reported by: AMELIE ANDREW on 12/28/21958 Magnesium Oxide (Magnesium) 400 Mg Tablet, 400 MG PO DAILY, (Reported) Entered as Reported by: AMELIE ANDREW on 12/28/21958 Melatonin (Melatonin) 5 Mg Tablet, 10 MG PO 1800, (Reported) Entered as Reported by: AMELIE ANDREW on 12/28/21958 Metformin HCl (Metformin HCl) 1,000 Mg Tablet, 1,000 MG PO 0600,1800, (Reported) Entered as Reported by: AMELIE ANDREW on 12/28/21958 Sennosides (Senna) 8.6 Mg Tablet, 8.6 MG PO Q12H PRN for CONSTIPATION-4TH LINE, (Reported) Entered as Reported by: AMELIE ANDREW on 12/28/21958 Review of Systems Review of Systems Constitutional: see HPI Eyes: Other (left facial pain - bruising) Respiratory: no symptoms reported Cardiovascular: no symptoms reported Gastrointestinal: no symptoms reported Musculoskeletal: no symptoms reported Skin: other (bruising) Psychiatric/Neurological: Other ("shaking") All Other Systems Reviewed Negative Unless Noted: Yes Past Efokkcz-Yhugbp-Zbmmvk Hx Immunizations Up To Date Tetanus Booster (TDap): Unknown PED Vaccines UTD: No First/Initial COVID19 Vaccinat: May 13, 2021 Second COVID19 Vaccination James: Jun 03, 2021 Seasonal Allergies Seasonal Allergies: No Past Medical History Breast, Hysterectomy, Neurological, Orthopedic High Cholesterol, Hypertension Stroke Reproductive Disorders: No Female Reproductive Disorders: Denies ENFORCEMENT SAFETY OFFICER History: Hysterectomy Sexually Transmitted Disease: No HIV/AIDS: No Gastroesophageal Reflux Chronic Back Pain Diabetes, Insulin dep Loss of Vision: Denies Hearing Impairment: Denies Adverse Reaction/Blood Tranf: No Family Medical History Hypertension Physical Exam Vital Signs Vital Signs - First Documented 04/21/22 12:35 Temp 36.4 Pulse 55 Resp 20 B/P (MAP) 144/80 Pulse Ox 98 O2 Delivery Room Air Capillary Refill : Height, Weight, BMI Height: 5'3.00" Weight: 231lbs. 0.0oz. 104.868186fm; 35.54 BMI Method:Stated General Appearance: WD/WN, mild distress (tearful and anxious) HEENT: other (rightward gaze deviation (patient is blind); ecchymoses under left eye and at left yazdanism) Neck: normal inspection, other (cervical collar; no midline tenderness) Respiratory: lungs clear, normal breath sounds, no respiratory distress, no accessory muscle use Cardiovascular: regular rate, rhythm, systolic murmur Gastrointestinal: non tender, soft Extremities: normal capillary refill, pelvis stable Neurologic/Psychiatric: alert, normal mood/affect, other (What appears to be focal repetitive seizure-like activity of the upper left extremity and similar motions to the left lower extremity.) Crainal Nerves: normal speech, abnormal eye position, other (Rightward gaze but she does and can go to the midline) Coordination/Gait: other (Patient is completely blind) Motor/Sensory: other (Weak motor strength through) Skin: normal color, warm/dry, other (bruising as above) Focused Exam Lactate Level 04/21/22 15:40: Lactic Acid Level 1.15 Lactic Acid Level Laboratory Tests Test 04/21/22 15:40 Lactic Acid Level 1.15 MMOL/L (0.50-2.00) Progress/Results/Core Measures Results/Orders Lab Results Laboratory Tests Test 04/21/22 12:50 04/21/22 13:08 04/21/22 13:39 04/21/22 14:49 Range/Units White Blood Count 5.0 4.3-11.0 10^3/uL Red Blood Count 3.56 L 3.80-5.11 10^6/uL Hemoglobin 10.6 L 11.5-16.0 g/dL Hematocrit 35 35-52 % Mean Corpuscular Volume 99 80-99 fL Mean Corpuscular Hemoglobin 30 25-34 pg Mean Corpuscular Hemoglobin Concent 30 L 32-36 g/dL Red Cell Distribution Width 14.7 H 10.0-14.5 % Platelet Count 147 130-400 10^3/uL Mean Platelet Volume 10.9 9.0-12.2 fL Immature Granulocyte % (Auto) 0 % Neutrophils (%) (Auto) 46 42-75 % Lymphocytes (%) (Auto) 39 12-44 % Monocytes (%) (Auto) 12 0-12 % Eosinophils (%) (Auto) 2 0-10 % Basophils (%) (Auto) 0 0-10 % Neutrophils # (Auto) 2.3 1.8-7.8 10^3/uL Lymphocytes # (Auto) 1.9 1.0-4.0 10^3/uL Monocytes # (Auto) 0.6 0.0-1.0 10^3/uL Eosinophils # (Auto) 0.1 0.0-0.3 10^3/uL Basophils # (Auto) 0.0 0.0-0.1 10^3/uL Immature Granulocyte # (Auto) 0.0 0.0-0.1 10^3/uL Prothrombin Time 13.2 12.2-14.7 SEC INR Comment 1.0 0.8-1.4 Activated Partial Thromboplast Time 24 24-35 SEC D-Dimer 1.09 H 0.00-0.49 UG/ML Sodium Level 143 135-145 MMOL/L Potassium Level 4.7 3.6-5.0 MMOL/L Chloride Level 107 98-107 MMOL/L Carbon Dioxide Level 23 21-32 MMOL/L Anion Gap 13 5-14 MMOL/L Blood Urea Nitrogen 13 7-18 MG/DL Creatinine 0.82 0.60-1.30 MG/DL Estimat Glomerular Filtration Rate 79 BUN/Creatinine Ratio 16 Glucose Level 128 H 70-105 MG/DL Calcium Level 8.8 8.5-10.1 MG/DL Corrected Calcium 9.3 8.5-10.1 MG/DL Total Bilirubin 0.4 0.1-1.0 MG/DL Aspartate Amino Transf (AST/SGOT) 22 5-34 U/L Alanine Aminotransferase (ALT/SGPT) 16 0-55 U/L Alkaline Phosphatase 42 40-136 U/L Troponin I < 0.028 <0.028 NG/ML Total Protein 6.1 L 6.4-8.2 GM/DL Albumin 3.4 3.2-4.5 GM/DL Valproic Acid (Depakene) Level 10.8 L 50.0-100.0 UG/ML Glucometer 122 H 70-110 MG/DL SARS-CoV-2 RNA (RT-PCR) Not Detected Not Detecte Urine Color YELLOW Urine Clarity CLOUDY Urine pH 6.0 5-9 Urine Specific [place] 1.020 1.016-1.022 Urine Protein NEGATIVE NEGATIVE Urine Glucose (UA) NEGATIVE NEGATIVE Urine Ketones TRACE H NEGATIVE Urine Nitrite NEGATIVE NEGATIVE Urine Bilirubin NEGATIVE NEGATIVE Urine Urobilinogen 0.2 < = 1.0 MG/DL Urine Leukocyte Esterase NEGATIVE NEGATIVE Urine RBC (Auto) NEGATIVE NEGATIVE Urine RBC RARE /HPF Urine WBC NONE /HPF Urine Squamous Epithelial Cells 0-2 /HPF Urine Crystals NONE /LPF Urine Bacteria FEW H /HPF Urine Casts PRESENT /LPF Urine Hyaline Casts RARE /LPF Urine Mucus SMALL H /LPF Urine Culture Indicated YES Test 04/21/22 15:40 Range/Units Lactic Acid Level 1.15 0.50-2.00 MMOL/L My Orders Orders - JHONY YEAGER MD Cbc With Automated Diff (04/21/22 13:01) Protime With Inr (04/21/22 13:01) Partial Thromboplastin Time (04/21/22 13:01) Comprehensive Metabolic Panel (04/21/22 13:01) Fibrin Degradation Products (04/21/22 13:01) Troponin I [place] (04/21/22 13:01) Ua Culture If Indicated (04/21/22 13:01) Chest 1 View, Ap/Pa Only (04/21/22 13:01) Ekg Tracing (04/21/22 13:01) Nothing By Mouth (04/21/22 Lunch) Accucheck Stat ONCE (04/21/22 13:01) Ed Iv/Invasive Line Start (04/21/22 13:01) Ed Iv/Invasive Line Start (04/21/22 13:01) Vital Signs Stroke Patient Q15M (04/21/22 13:01) Ct Head Wo-R/O Stroke (04/21/22 13:01) O2 (04/21/22 13:01) Intake & Output 06,14,22 (04/21/22 13:01) Monitor-Rhythm Ecg Trace Only (04/21/22 13:01) Dysphagia Screening Tool [id number] (04/21/22 13:01) Post Thrombolytic Adminstratio (04/21/22 13:01) Lipid Panel (04/22/22 06:00) Ct Cervical Spine Wo (04/21/22 13:01) Covid 19 Inhouse Test (04/21/22 13:01) Isolation Central Supply Req (04/21/22 13:01) Valproic Acid (04/21/22 14:52) Blood Culture (04/21/22 14:52) Lactic Acid Analyzer (04/21/22 14:52) Urine Culture (04/21/22 14:49) Valproate Inj (Non-Formulary) (Depacon ( (04/21/22 16:15) Vital Signs/I&O 04/21/22 04/21/22 04/21/22 12:35 12:35 14:37 Temp 36.4 36.6 Pulse 55 55 Resp 20 20 B/P (MAP) 144/80 144/80 (101) Pulse Ox 98 98 O2 Delivery Room Air Progress Progress Note #1: Time: 14:16 Progress Note Son arrived in the emergency department. Further story from him is as follows; patient was in her room and her grandson heard her fall behind the bedroom door. Both the grandson and son were able to get into the room and assisted her to the bed. They noted that she was "trembling" specifically in the left upper and left lower extremity. Son called and they advised transport to versus the nearest local facility. The son states that he was on the phone with when EMS arrived. They states she was a little bit confused. She had hit her face apparently on the door frame when she fell. She was recently released from rehab on Monday of this week after being in for 20 days post 1 month admission for worsening seizures. Son states that she was started on a second antiseizure medicine during this hospitalization. She was given an extra Keppra right after this fall and witnessed seizure activity. Patient's work-up is reviewed, no focal bleed or other acute pathology on CT noncontrast brain. Cervical spine CT is also negative. Chest x-ray shows poor inspiratory effort but otherwise no acute pathology. Labs are reviewed and seemingly all within normal limits. UA has yet to be collected. Son states that she is currently at her normal mental baseline. She is no longer having focal seizure activity specifically of the left upper extremity. Progress Note #2: Time: 14:35 Progress Note Notified by KELLY Putnam that the patient's blood pressure has fallen from the 140s at triage down to about 90 systolic. She remains in a somewhat bradycardia with rates in the 50s Progress Note #3: Time: 16:20 Progress Note I spoke with [facility], Dr. Servin about 1422. She reviewed her discharge summary from [facility], the patient is currently on 1500 mg of Keppra twice daily as well as valproic acid [address] Servin recommended checking a valproic acid level and changing her dose as needed. I reviewed valproic acid results h er level is 10. Dr. Servin said if she is back to her normal baseline mental status she would be comfortable with discharge to home and no further imaging i.e. MRI. We will increase her valproic acid to 750 3 times daily. I am going to give her a loading of the 1000 mg IV piggyback here in the emergency department. Her vitals are stable though she is somewhat bradycardic in the upper 40s low 50s. Pressure has rebounded. I have spoken with the son about this plan. He seems comfortable with that she has a home health visit for establishment of care tomorrow at 10 AM as well as a home visit by her primary care tomorrow afternoon. I have advised him to monitor her for further symptoms or worsening. He verbalized understanding. All questions are sought and answered. Initial ECG Impression Date: Apr 21, 2022 Initial ECG Impression Time: 13:11 Initial ECG Rate: 50 Initial ECG Intervals: Normal Comment Nonspecific ST-T wave changes throughout Departure Impression Primary Impression: Seizure Additional Impressions: H/O: CVA (cerebrovascular accident) Morgan morgan disease Disposition: 01 HOME, SELF-CARE Condition: Improved Departure-Patient Inst. Decision time for Depature: 16:22 Referrals: [facility] (PCP) Primary Care Physician REN REILLY (Family) Primary Care Physician Patient Instructions: Seizures Add. Discharge Instructions: We are increasing her valproic acid from 750 twice daily to 753 times a day. This will increase her levels from "10" up into the more therapeutic range of 50-100. Monitor her for nausea, vomiting, excessive sleepiness, abdominal pain, rashes or any other concerning symptoms (as related to the valproic acid dosing). She will need a repeat level checked at some point over the course of the next week to 2 weeks. Please follow-up with her neurologist at . Return to the emergency department for any new, concerning or emergent complaints. Scripts Valproic Acid (Valproic Acid) 250 Mg Capsule 250 MG PO TID, #135 CAP Prov: JHONY YEAGER MD 04/21/22 Copy Copies To 1: ORION JORGE KATHRYN M MD Apr 21, 2022 13:09
[2022-04-21 13:14] LABS: HEMOGLOBIN 10.6 g/dL (11.5-16.0)
[2022-04-21 13:15] LABS: BASOPHILS % (AUTO) 0 % (0-10); EOSINOPHILS # (AUTO) 0.1 10^3/uL (0.0-0.3); EOSINOPHILS % (AUTO) 2 % (0-10); HEMATOCRIT 35 % (35-52); LYMPHOCYTES # (AUTO) 1.9 10^3/uL (1.0-4.0); LYMPHOCYTES % (AUTO) 39 % (12-44); MEAN CORPUSCULAR HEMOGLOBIN 30 pg (25-34); MEAN CORPUSCULAR HGB CONC 30 g/dL (32-36); MEAN CORPUSCULAR VOLUME 99 fL (80-99); MEAN PLATELET VOLUME 10.9 fL (9.0-12.2); MONOCYTES # (AUTO) 0.6 10^3/uL (0.0-1.0); MONOCYTES % (AUTO) 12 % (0-12); NEUTROPHILS # (AUTO) 2.3 10^3/uL (1.8-7.8); NEUTROPHILS % (AUTO) 46 % (42-75); PLATELET COUNT 147 10^3/uL (130-400)
[2022-04-21 13:23] LABS: FIBRIN DEGRADATION PRODUCTS 1.09 UG/ML (0.00-0.49); PROTHROMBIN TIME PATIENT 13.2 SEC (12.2-14.7)
[2022-04-21 13:29] LABS: ALBUMIN 3.4 GM/DL (3.2-4.5); CHLORIDE 107 MMOL/L (98-107)
[2022-04-21 13:30] LABS: POTASSIUM 4.7 MMOL/L (3.6-5.0); SODIUM 143 MMOL/L (135-145)
[2022-04-21 13:31] LABS: CALCIUM 8.8 MG/DL (8.5-10.1)
[2022-04-21 13:32] LABS: GLUCOSE 128 MG/DL (70-105); TOTAL PROTEIN 6.1 GM/DL (6.4-8.2)
[2022-04-21 13:33] LABS: CARBON DIOXIDE 23 MMOL/L (21-32)
[2022-04-21 13:34] LABS: BILIRUBIN,TOTAL 0.4 MG/DL (0.1-1.0)
[2022-04-21 13:35] LABS: ALKALINE PHOSPHATASE 42 U/L (40-136)
[2022-04-21 13:36] LABS: CREATININE SERUM 0.82 MG/DL (0.60-1.30); GFR ESTIMATED 79
[2022-04-21 13:37] LABS: BUN/CREATININE RATIO 16
[2022-04-21 13:38] LABS: ALANINE AMINOTRANSFERASE 16 U/L (0-55)
--- NOTE | 2022-04-21 13:44 | Diagnostic Imaging Report ---
CLINICAL INDICATIONS: Patient fell earlier today and had a seizure. EXAM: Axial CT scan of the cervical spine performed without IV contrast. Sagittal and coronal reformatted images were created. COMPARISON: MRI of the cervical spine without contrast dated 03/09/2016. FINDINGS: There is no acute cervical spine fracture. There is subtle grade 1 anterolisthesis of C3 on C4 with no pars defect, likely degenerative and has slightly progressed in the interim. There are cervical spine vertebral body spurs and facet arthropathy. Again seen, intervertebral fusion at the C6-C7 level with interbody bone graft and solid bony bridging/fusion. There is no significant bony central canal or neural foramen narrowing. The neck soft tissue structures show no significant abnormality. The visualized upper lung arias are clear. IMPRESSION: Cervical spine degenerative disease with no acute cervical spine fracture. Dictated by: Dictated on workstation # [id number]
--- NOTE | 2022-04-21 13:48 | Diagnostic Imaging Report ---
INDICATION: Seizure this morning. TECHNIQUE: Single view chest, 1:29 p.m. CORRELATION STUDY: 12/27/2021. FINDINGS: Limited depth of inspiration. Given this, heart size and mediastinal vascularity are overall likely within normal limits. No definitive consolidating infiltrate. There is slight elevated right diaphragm compared to the left. IMPRESSION: 1. Limited, suboptimal depth of inspiration. No acute cardiopulmonary abnormality. Dictated by: Dictated on workstation # [id number]
--- NOTE | 2022-04-21 13:49 | Diagnostic Imaging Report ---
PROCEDURE: CT head wo r/o stroke. TECHNIQUE: Multiple contiguous axial images were obtained through the brain without the use of intravenous contrast. Auto Exposure Controls were utilized during the CT exam to meet ALARA standards for radiation dose reduction. INDICATION: Seizure. COMPARISON: CT head of 10/02/2016. FINDINGS: There are multiple large regions of encephalomalacia involving the bilateral parieto-occipital lobes and left frontal lobe. Left frontal craniotomy site is noted. No hyperdense hemorrhage or space-occupying mass. No hydrocephalus or midline shift. Basilar cisterns are widely patent. No hyperdense vessel sign. No acute skull fracture. Right temporal craniotomy has been performed. Paranasal sinuses and mastoid air cells are clear. IMPRESSION: 1. No acute intracranial hemorrhage. 2. No acute skull fracture. Bilateral craniotomies have been performed. 3. Multiple large regions of encephalomalacia are likely due to combination of ischemia and prior hemorrhage. Dictated by: Dictated on workstation # [id number]
[2022-04-21 14:52] LABS: BILIRUBIN,URINE NEGATIVE (NEGATIVE); CLARITY,URINE CLOUDY; COLOR,URINE YELLOW; GLUCOSE, URINE (UA) NEGATIVE (NEGATIVE); KETONES,URINE TRACE (NEGATIVE); LEUKOCYTE ESTERASE ,URINE NEGATIVE (NEGATIVE); NITRITE,URINE NEGATIVE (NEGATIVE); PROTEIN,URINE NEGATIVE (NEGATIVE)
[2022-04-21 15:25] LABS: BACTERIA,URINE FEW /HPF; HYALINE CASTS, URINE RARE /LPF; RBC,URINE RARE /HPF; SQUAMOUS EPITHELIAL CELL,UR 0-2 /HPF
[2022-04-21] MEDS ORDERED: VALPROATE INJ (NON-FORMULARY) 1,000 MG in D5W 100 ML IVPB 100 ML IV ONE (16:15)
[2022-04-21] MEDS ORDERED: VALP250C3 PO (16:27)
[2022-04-21 18:11] VITALS: BP 120/62
== END 2022-04-21 18:11 | disposition home or self-care (01) ==
LOC: EDUNIT# 12:32 → ER 12:33
DX: S00.12XA Contusion of left eyelid and periocular area, initial encounter (principal); R56.9 Unspecified convulsions; I67.5 Moyamoya disease; R94.31 Abnormal electrocardiogram [ECG] [EKG]; H54.7 Unspecified visual loss; I48.91 Unspecified atrial fibrillation; E11.9 Type 2 diabetes mellitus without complications; Z86.73 Personal history of transient ischemic attack (TIA), and cerebral infarction without residual deficits; Z79.4 Long term (current) use of insulin; Z79.899 Other long term (current) drug therapy; Z79.01 Long term (current) use of anticoagulants; Z20.822 Contact with and (suspected) exposure to COVID-19; W19.XXXA Unspecified fall, initial encounter; Y92.009 Unspecified place in unspecified non-institutional (private) residence as the place of occurrence of the external cause
CPT/HCPCS: 36415; 70450; 71045; 72125; 80053; 80164; 81000; 82947; 83605; 84484; 85025; 85379; 85610; 85730; 87040; 87088; 87636; 93005; 93041